=== PATIENT | female | born 1955 | race Caucasian/White ===

== ENCOUNTER 2017-05-19 23:01 | Inpatient (IN) | payer OTHER ==
[~2017-05-19] VITALS: Ht 157.5 cm; Wt 72.0 kg
[2017-05-20 01:10] LABS: Basophils # (auto) 0.1 uL; Basophils % (auto) 0.4 % (0.0-2.0); Eosinophils # (auto) 0 uL; Hematocrit 43.4 % (36.0-46.0); Lymphocytes # (auto) 0.9 uL; Lymphocytes % (auto) 5.3 % (10.0-50.0); Mean Corpuscular Hemoglobin 31.4 pg (28.0-32.0); Mean Corpuscular Hgb Conc. 34.4 g/dL (32.0-36.0); Mean Corpuscular Volume 91.1 fL (80.0-100.0); Monocytes # (auto) 0.5 uL; Monocytes % (auto) 2.8 % (0.0-12.0); Neutrophils % (auto) 91.5 % (37.0-80.0); Platelet Count (auto) 331 10^3/uL (140-450); Red Blood Cells 4.77 10^6/uL (4.0-5.20); Red Cell Distribution Width 14.9 % (11.8-14.3); White Blood Cell 17.5 10^3/uL (4.4-10.8)
[2017-05-20] MEDS ORDERED: ONDANSETRON HCL 4 MG/2 ML VIAL IV ONE (03:15)
[2017-05-20] MEDS ORDERED: FAMOTIDINE (10MG/ML) 2ML VL IV ONE (03:15)
[2017-05-20 03:32] LABS: Alkaline Phosphatase 91 U/L (45-117); Anion Gap 17 (5-15); Aspartate Aminotransferase 22 U/L (15-37); BUN/Creatinine Ratio 15.2; Blood Urea Nitrogen 14 mg/dL (7-18); Carbon Dioxide 18 mmol/L (21-32); Chloride 105 mmol/L (98-107); GFR African American 79 mL/min; GFR Non-African American 66 mL/min; Glucose 93 mg/dL (74-106); Potassium 3.8 mmol/L (3.5-5.1); Sodium 140 mmol/L (136-145)
[2017-05-20 03:33] LABS: Alanine Aminotransferase 23 U/L (13-56); Albumin 2.6 g/dL (3.4-5.0); Bilirubin, Total 0.8 mg/dL (0.2-1.0); Lipase 74 U/L (73-393); Total Protein 7.3 g/dL (6.4-8.2)
[2017-05-20] MEDS ORDERED: D5W/SOD CHL 0.45%/KCL 20MEQ 1,000 ML IV ONE (08:45)
[2017-05-20] MEDS: amLODIPine BESYLATE 5 MG TAB PO SCH (10:45)
[2017-05-20] MEDS: LEVOFLOXACIN 500MG 100 ML IV SCH (10:53)
[2017-05-20] MEDS: MESALAMINE 400mg Delayed Release Cap PO SCH ×2 (10:53→21:03)
[2017-05-20] MEDS: PANTOPRAZOLE 40 MG TAB PO SCH (10:53)
[2017-05-20] MEDS: metroNIDAZOLE 500MG/100ML 100 ML IV SCH ×2 (12:03→18:15)
[2017-05-20] MEDS: ONDANSETRON HCL 4 MG/2 ML VIAL IV PRN ×2 (12:04→18:27)
[2017-05-20] MEDS: MORPHINE SULFATE 4 MG/ML SYR/VIAL IV PRN (12:04)
[2017-05-20] MEDS: DICYCLOMINE HCL 10 MG CAP PO SCH ×3 (12:40→21:02)
[2017-05-20 13:19] VITALS: BP 113/64
[2017-05-20 13:45] VITALS: BP 113/63
[2017-05-20] MEDS: TIMOLOL MALEATE 0.25 % OPTH SOL 5ML EACHEYE SCH ×2 (14:31→21:01)
[2017-05-20] MEDS ORDERED: DICY20TA66 PO (14:37)
[2017-05-20] MEDS ORDERED: OME20T PO (14:37)
[2017-05-20] MEDS ORDERED: [UNRECOGNIZED DRUG - CODE] PO (14:37)
[2017-05-20 16:57] LABS: Urine Bacteria NONE SEEN /hpf (None Seen); Urine Blood Negative /uL (Negative); Urine Specific Gravity 1.009 (1.001-1.035); Urine WBC 36 /hpf (0 - 5)
[2017-05-20 17:00] VITALS: BP 141/68
[2017-05-20] MEDS ORDERED: ACET650S12 PO (19:10)
[2017-05-20] MEDS ORDERED: TIMO0.2521 EACHEYE (19:10)
[2017-05-20] MEDS ORDERED: AMLO5TAB2 PO (19:10)
[2017-05-20] MEDS ORDERED: DIPH2.5T73 PO (19:10)
[2017-05-20] MEDS ORDERED: METO5TAB2 PO (19:10)
[2017-05-20] MEDS: diphenhdrAMINE HCL 50 MG/1 ML VL IV PRN (21:02)
[2017-05-20] MEDS: ACYCLOVIR 400 MG TAB PO SCH (21:03)
[2017-05-20 22:00] VITALS: BP 114/78
[2017-05-20] MEDS ORDERED: MESALAMINE 400mg Delayed Release Cap PO SCH (22:00)
[2017-05-20] MEDS ORDERED: PANTOPRAZOLE 40 MG TAB PO SCH (22:00)
[2017-05-21] MEDS: MORPHINE SULFATE 4 MG/ML SYR/VIAL IV PRN ×2 (00:10→11:40)
[2017-05-21] MEDS: metroNIDAZOLE 500MG/100ML 100 ML IV SCH ×3 (02:17→18:34)
[2017-05-21 05:09] VITALS: BP 129/70
[2017-05-21] MEDS: ACYCLOVIR 400 MG TAB PO SCH ×2 (06:11→08:52)
[2017-05-21] MEDS: TIMOLOL MALEATE 0.25 % OPTH SOL 5ML EACHEYE SCH ×3 (06:12→22:19)
[2017-05-21] MEDS: DICYCLOMINE HCL 10 MG CAP PO SCH ×4 (06:12→21:44)
[2017-05-21 06:24] LABS: Basophils # (auto) 0 uL; Basophils % (auto) 0.4 % (0.0-2.0); Eosinophils # (auto) 0.1 uL; Eosinophils % (auto) 1.5 % (0.0-7.0); Hematocrit 39.2 % (36.0-46.0); Hemoglobin 13.4 g/dL (12.2-16.2); Lymphocytes # (auto) 2.6 uL; Lymphocytes % (auto) 38.9 % (10.0-50.0); Mean Corpuscular Hemoglobin 32.1 pg (28.0-32.0); Mean Corpuscular Hgb Conc. 34.1 g/dL (32.0-36.0); Mean Corpuscular Volume 94.2 fL (80.0-100.0); Monocytes # (auto) 0.5 uL; Monocytes % (auto) 7.7 % (0.0-12.0); Neutrophils # (auto) 3.4 uL; Neutrophils % (auto) 51.5 % (37.0-80.0); Platelet Count (auto) 222 10^3/uL (140-450); Red Blood Cells 4.16 10^6/uL (4.0-5.20); Red Cell Distribution Width 14.4 % (11.8-14.3); White Blood Cell 6.6 10^3/uL (4.4-10.8)
[2017-05-21 06:45] LABS: BUN/Creatinine Ratio 15.4; Bilirubin, Total 0.6 mg/dL (0.2-1.0); Calcium 8.1 mg/dL (8.5-10.1); Potassium 3.4 mmol/L (3.5-5.1); Total Protein 6.5 g/dL (6.4-8.2)
[2017-05-21] MEDS: ONDANSETRON HCL 4 MG/2 ML VIAL IV PRN ×2 (07:53→15:02)
[2017-05-21] MEDS: LEVOFLOXACIN 500MG 100 ML IV SCH (08:50)
[2017-05-21] MEDS: MESALAMINE 400mg Delayed Release Cap PO SCH ×2 (08:51→21:44)
[2017-05-21] MEDS: amLODIPine BESYLATE 5 MG TAB PO SCH (08:51)
[2017-05-21] MEDS: PANTOPRAZOLE 40 MG TAB PO SCH (08:51)
[2017-05-21 09:00] VITALS: BP 122/64
[2017-05-21 13:00] VITALS: BP 125/70
[2017-05-21] MEDS ORDERED: POTASSIUM CHL 10% (20 MEQ/15ML) 15ml ORAL SOLN PO ONE (14:15)
[2017-05-21] MEDS ORDERED: methylPREDNISolone SOD SUCC 125 MG/2 ML VL IV ONE (14:30)
[2017-05-21] MEDS: diphenhdrAMINE HCL 50 MG/1 ML VL IV PRN ×2 (15:02→19:35)
[2017-05-21 17:00] VITALS: BP 136/66
[2017-05-21] MEDS: methylPREDNISolone SOD SUCC 125 MG/2 ML VL IV SCH (21:44)
[2017-05-21 22:00] VITALS: BP 130/64
[2017-05-22] MEDS: metroNIDAZOLE 500MG/100ML 100 ML IV SCH ×3 (02:33→17:21)
[2017-05-22] MEDS: MORPHINE SULFATE 4 MG/ML SYR/VIAL IV PRN ×3 (04:34→17:22)
[2017-05-22] MEDS: ONDANSETRON HCL 4 MG/2 ML VIAL IV PRN ×3 (04:35→17:22)
[2017-05-22 05:00] VITALS: BP 135/74
[2017-05-22] MEDS: TIMOLOL MALEATE 0.25 % OPTH SOL 5ML EACHEYE SCH ×3 (05:59→21:42)
[2017-05-22] MEDS: DICYCLOMINE HCL 10 MG CAP PO SCH ×4 (05:59→21:43)
[2017-05-22 06:43] LABS: Potassium 3.9 mmol/L (3.5-5.1)
[2017-05-22 06:46] LABS: BUN/Creatinine Ratio 17.6
[2017-05-22] MEDS: methylPREDNISolone SOD SUCC 125 MG/2 ML VL IV SCH ×2 (08:39→21:42)
[2017-05-22] MEDS: PANTOPRAZOLE 40 MG TAB PO SCH (08:40)
[2017-05-22] MEDS: amLODIPine BESYLATE 5 MG TAB PO SCH (08:40)
[2017-05-22] MEDS: MESALAMINE 400mg Delayed Release Cap PO SCH ×2 (08:40→21:43)
[2017-05-22] MEDS: diphenhdrAMINE HCL 50 MG/1 ML VL IV PRN ×4 (08:40→21:43)
[2017-05-22 08:45] VITALS: BP 144/78
[2017-05-22] MEDS: LEVOFLOXACIN 500MG 100 ML IV SCH (09:49)
[2017-05-22 12:15] VITALS: BP 132/66
[2017-05-22 17:13] VITALS: BP 113/65
[2017-05-22 22:49] VITALS: BP 118/69
[2017-05-23] MEDS: metroNIDAZOLE 500MG/100ML 100 ML IV SCH ×3 (02:59→17:39)
[2017-05-23 05:01] VITALS: BP 130/73
[2017-05-23] MEDS: TIMOLOL MALEATE 0.25 % OPTH SOL 5ML EACHEYE SCH ×3 (06:03→22:13)
[2017-05-23] MEDS: DICYCLOMINE HCL 10 MG CAP PO SCH ×4 (06:03→22:13)
[2017-05-23] MEDS: ONDANSETRON HCL 4 MG/2 ML VIAL IV PRN ×4 (06:04→22:13)
[2017-05-23] MEDS: MORPHINE SULFATE 4 MG/ML SYR/VIAL IV PRN (06:04)
[2017-05-23] MEDS: diphenhdrAMINE HCL 50 MG/1 ML VL IV PRN ×2 (06:04→14:27)
[2017-05-23 08:41] VITALS: BP 111/63
[2017-05-23] MEDS: MESALAMINE 400mg Delayed Release Cap PO SCH ×2 (10:07→22:12)
[2017-05-23] MEDS: PANTOPRAZOLE 40 MG TAB PO SCH (10:07)
[2017-05-23] MEDS: methylPREDNISolone SOD SUCC 125 MG/2 ML VL IV SCH ×2 (10:07→22:13)
[2017-05-23] MEDS: LEVOFLOXACIN 500MG 100 ML IV SCH (10:07)
[2017-05-23] MEDS: amLODIPine BESYLATE 5 MG TAB PO SCH (10:10)
[2017-05-23 12:26] VITALS: BP 105/67
[2017-05-23 16:27] VITALS: BP 116/66
[2017-05-23 22:00] VITALS: BP 117/53
[2017-05-24] MEDS: metroNIDAZOLE 500MG/100ML 100 ML IV SCH ×3 (02:48→18:55)
[2017-05-24 05:00] VITALS: BP 120/67
[2017-05-24] MEDS: TIMOLOL MALEATE 0.25 % OPTH SOL 5ML EACHEYE SCH ×3 (06:17→22:00)
[2017-05-24] MEDS: DICYCLOMINE HCL 10 MG CAP PO SCH ×4 (06:17→22:00)
[2017-05-24] MEDS: ONDANSETRON HCL 4 MG/2 ML VIAL IV PRN ×3 (06:55→20:42)
[2017-05-24 08:27] VITALS: BP 128/74
[2017-05-24] MEDS: methylPREDNISolone SOD SUCC 125 MG/2 ML VL IV SCH ×2 (08:53→23:03)
[2017-05-24] MEDS: MESALAMINE 400mg Delayed Release Cap PO SCH ×2 (08:53→23:02)
[2017-05-24] MEDS: LEVOFLOXACIN 500MG 100 ML IV SCH (08:53)
[2017-05-24] MEDS: amLODIPine BESYLATE 5 MG TAB PO SCH (08:54)
[2017-05-24] MEDS: PANTOPRAZOLE 40 MG TAB PO SCH (08:54)
[2017-05-24 12:19] VITALS: BP 140/69
[2017-05-24 17:16] VITALS: BP 148/78
[2017-05-24] MEDS: MORPHINE SULFATE 4 MG/ML SYR/VIAL IV PRN (17:31)
[2017-05-24 22:22] VITALS: BP 129/71
[2017-05-25] MEDS: metroNIDAZOLE 500MG/100ML 100 ML IV SCH ×3 (03:01→18:36)
[2017-05-25 04:59] VITALS: BP 125/64
[2017-05-25] MEDS: TIMOLOL MALEATE 0.25 % OPTH SOL 5ML EACHEYE SCH ×3 (06:00→22:16)
[2017-05-25] MEDS: MESALAMINE 400mg Delayed Release Cap PO SCH ×3 (06:19→22:19)
[2017-05-25] MEDS: DICYCLOMINE HCL 10 MG CAP PO SCH ×4 (06:19→22:00)
[2017-05-25] MEDS: ONDANSETRON HCL 4 MG/2 ML VIAL IV PRN ×3 (06:26→22:16)
[2017-05-25 07:42] LABS: BUN/Creatinine Ratio 22.8; Calcium 8.7 mg/dL (8.5-10.1); Potassium 3.6 mmol/L (3.5-5.1)
[2017-05-25 09:23] VITALS: BP 148/75
[2017-05-25] MEDS: LEVOFLOXACIN 500MG 100 ML IV SCH (09:47)
[2017-05-25] MEDS: PANTOPRAZOLE 40 MG TAB PO SCH (09:48)
[2017-05-25] MEDS: methylPREDNISolone SOD SUCC 125 MG/2 ML VL IV SCH ×2 (09:48→22:18)
[2017-05-25] MEDS: amLODIPine BESYLATE 5 MG TAB PO SCH (09:50)
[2017-05-25] MEDS: MORPHINE SULFATE 4 MG/ML SYR/VIAL IV PRN ×4 (09:51→22:52)
[2017-05-25 12:49] VITALS: BP 136/70
[2017-05-25 17:21] VITALS: BP 130/87
[2017-05-25 22:00] VITALS: BP 137/99
[2017-05-25] MEDS: HYDROCORTISONE ACET 25 MG RECTAL SUPP PR SCH (22:18)
[2017-05-26] VITALS (7 sets, daily range): BP systolic 116–140; BP diastolic 56–83
[2017-05-26] MEDS: metroNIDAZOLE 500MG/100ML 100 ML IV SCH ×3 (02:51→18:10)
[2017-05-26] MEDS: DICYCLOMINE HCL 10 MG CAP PO SCH ×4 (06:00→22:37)
[2017-05-26] MEDS: ONDANSETRON HCL 4 MG/2 ML VIAL IV PRN ×3 (06:51→15:29)
[2017-05-26] MEDS: MORPHINE SULFATE 4 MG/ML SYR/VIAL IV PRN ×3 (06:52→15:29)
[2017-05-26] MEDS: MESALAMINE 400mg Delayed Release Cap PO SCH ×3 (06:53→22:37)
[2017-05-26] MEDS: TIMOLOL MALEATE 0.25 % OPTH SOL 5ML EACHEYE SCH ×3 (06:53→22:00)
[2017-05-26] MEDS: LEVOFLOXACIN 500MG 100 ML IV SCH (10:23)
[2017-05-26] MEDS: methylPREDNISolone SOD SUCC 125 MG/2 ML VL IV SCH ×2 (10:24→22:36)
[2017-05-26] MEDS: PANTOPRAZOLE 40 MG TAB PO SCH (10:24)
[2017-05-26] MEDS: amLODIPine BESYLATE 5 MG TAB PO SCH (10:26)
[2017-05-26] MEDS: HYDROCORTISONE ACET 25 MG RECTAL SUPP PR SCH ×2 (10:26→22:00)
[2017-05-26] MEDS: diphenhdrAMINE HCL 50 MG/1 ML VL IV PRN (18:19)
[2017-05-26] MEDS: ASCORBIC ACID 500 MG TAB PO SCH (22:00)
[2017-05-27] MEDS: metroNIDAZOLE 500MG/100ML 100 ML IV SCH ×3 (03:28→17:37)
[2017-05-27 05:05] VITALS: BP 132/76
[2017-05-27] MEDS: ONDANSETRON HCL 4 MG/2 ML VIAL IV PRN ×4 (06:00→20:26)
[2017-05-27] MEDS: TIMOLOL MALEATE 0.25 % OPTH SOL 5ML EACHEYE SCH ×3 (06:00→21:23)
[2017-05-27] MEDS: DICYCLOMINE HCL 10 MG CAP PO SCH ×4 (06:00→21:25)
[2017-05-27] MEDS: MESALAMINE 400mg Delayed Release Cap PO SCH ×3 (06:01→21:25)
[2017-05-27 06:20] LABS: Basophils # (auto) 0 uL; Basophils % (auto) 0.1 % (0.0-2.0); Eosinophils # (auto) 0 uL; Hematocrit 46.3 % (36.0-46.0); Hemoglobin 15.6 g/dL (12.2-16.2); Lymphocytes % (auto) 8.9 % (10.0-50.0); Mean Corpuscular Hemoglobin 31.6 pg (28.0-32.0); Mean Corpuscular Hgb Conc. 33.8 g/dL (32.0-36.0); Mean Corpuscular Volume 93.5 fL (80.0-100.0); Monocytes # (auto) 0.4 uL; Monocytes % (auto) 3.3 % (0.0-12.0); Neutrophils # (auto) 10.2 uL; Neutrophils % (auto) 87.7 % (37.0-80.0); Nucleated Red Blood Cells % 0.1 %; Platelet Count (auto) 293 10^3/uL (140-450); Red Blood Cells 4.96 10^6/uL (4.0-5.20); Red Cell Distribution Width 14.2 % (11.8-14.3); White Blood Cell 11.7 10^3/uL (4.4-10.8)
[2017-05-27 06:38] LABS: Albumin 2.6 g/dL (3.4-5.0); Bilirubin, Total 0.4 mg/dL (0.2-1.0); Calcium 7.8 mg/dL (8.5-10.1); Potassium 3.5 mmol/L (3.5-5.1)
[2017-05-27] MEDS: MORPHINE SULFATE 4 MG/ML SYR/VIAL IV PRN ×3 (06:49→20:27)
[2017-05-27 09:16] VITALS: BP 139/73
[2017-05-27] MEDS: HYDROCORTISONE ACET 25 MG RECTAL SUPP PR SCH ×2 (09:22→21:26)
[2017-05-27] MEDS: MULTIPLE VITAMIN TAB PO SCH (09:23)
[2017-05-27] MEDS: methylPREDNISolone SOD SUCC 125 MG/2 ML VL IV SCH (09:23)
[2017-05-27] MEDS: PANTOPRAZOLE 40 MG TAB PO SCH (09:23)
[2017-05-27] MEDS: ASCORBIC ACID 500 MG TAB PO SCH ×2 (09:23→21:26)
[2017-05-27] MEDS: amLODIPine BESYLATE 5 MG TAB PO SCH (09:24)
[2017-05-27] MEDS: LEVOFLOXACIN 500MG 100 ML IV SCH (09:25)
[2017-05-27 17:25] VITALS: BP 131/93
[2017-05-27] MEDS: VANCOMYCIN HCL 500MG/5ML ORAL SOL PO SCH ×2 (19:02→21:24)
[2017-05-27 20:00] VITALS: BP 140/63
[2017-05-27] MEDS: FLORASTOR (S. BOULARDII) 250 MG CAP PO SCH (21:26)
[2017-05-27 22:00] VITALS: BP 140/63
[2017-05-28] MEDS: metroNIDAZOLE 500MG/100ML 100 ML IV SCH ×3 (03:05→17:57)
[2017-05-28 05:00] VITALS: BP 123/59
[2017-05-28] MEDS: TIMOLOL MALEATE 0.25 % OPTH SOL 5ML EACHEYE SCH ×3 (06:00→22:00)
[2017-05-28] MEDS: DICYCLOMINE HCL 10 MG CAP PO SCH ×4 (06:10→23:08)
[2017-05-28] MEDS: VANCOMYCIN HCL 500MG/5ML ORAL SOL PO SCH ×4 (06:10→23:14)
[2017-05-28] MEDS: MESALAMINE 400mg Delayed Release Cap PO SCH ×3 (06:10→23:09)
[2017-05-28] MEDS: ONDANSETRON HCL 4 MG/2 ML VIAL IV PRN ×3 (06:10→17:27)
[2017-05-28 09:00] VITALS: BP 116/69
[2017-05-28] MEDS: ASCORBIC ACID 500 MG TAB PO SCH ×2 (09:17→23:09)
[2017-05-28] MEDS: FLORASTOR (S. BOULARDII) 250 MG CAP PO SCH ×2 (09:17→23:08)
[2017-05-28] MEDS: PANTOPRAZOLE 40 MG TAB PO SCH (09:17)
[2017-05-28] MEDS: MULTIPLE VITAMIN TAB PO SCH (09:17)
[2017-05-28] MEDS: amLODIPine BESYLATE 5 MG TAB PO SCH (09:18)
[2017-05-28] MEDS: HYDROCORTISONE ACET 25 MG RECTAL SUPP PR SCH ×2 (09:19→22:00)
[2017-05-28] MEDS: MORPHINE SULFATE 4 MG/ML SYR/VIAL IV PRN ×2 (09:23→16:40)
[2017-05-28] MEDS ORDERED: methylPREDNISolone SOD SUCC 40 MG/ML VL IV SCH (10:00)
[2017-05-28 10:15] LABS: Basophils # (auto) 0 uL; Eosinophils # (auto) 0 uL; Eosinophils % (auto) 0.1 % (0.0-7.0); Hematocrit 47.7 % (36.0-46.0); Hemoglobin 16.1 g/dL (12.2-16.2); Lymphocytes # (auto) 1.6 uL; Lymphocytes % (auto) 12.6 % (10.0-50.0); Mean Corpuscular Hemoglobin 31.4 pg (28.0-32.0); Mean Corpuscular Hgb Conc. 33.6 g/dL (32.0-36.0); Mean Corpuscular Volume 93.3 fL (80.0-100.0); Monocytes # (auto) 1.3 uL; Monocytes % (auto) 10.7 % (0.0-12.0); Neutrophils # (auto) 9.5 uL; Neutrophils % (auto) 76.6 % (37.0-80.0); Platelet Count (auto) 294 10^3/uL (140-450); Red Blood Cells 5.12 10^6/uL (4.0-5.20); Red Cell Distribution Width 14.2 % (11.8-14.3); White Blood Cell 12.5 10^3/uL (4.4-10.8)
[2017-05-28 10:35] LABS: Albumin 2.7 g/dL (3.4-5.0); BUN/Creatinine Ratio 31.8; Bilirubin, Total 0.4 mg/dL (0.2-1.0); Calcium 7.8 mg/dL (8.5-10.1); Potassium 3.5 mmol/L (3.5-5.1); Total Protein 6.1 g/dL (6.4-8.2)
[2017-05-28 12:00] VITALS: BP 123/62
[2017-05-28] MEDS: CHOLESTYRAMINE 4 GM POWDER PO SCH ×2 (13:53→23:09)
[2017-05-28 16:00] VITALS: BP 106/65
[2017-05-28] MEDS: diphenhdrAMINE HCL 50 MG/1 ML VL IV PRN (19:50)
[2017-05-28 22:00] VITALS: BP 115/76
[2017-05-29] VITALS (7 sets, daily range): BP systolic 100–133; BP diastolic 60–69
[2017-05-29] MEDS: MORPHINE SULFATE 4 MG/ML SYR/VIAL IV PRN ×2 (00:14→06:17)
[2017-05-29] MEDS: metroNIDAZOLE 500MG/100ML 100 ML IV SCH (04:17)
[2017-05-29] MEDS: TIMOLOL MALEATE 0.25 % OPTH SOL 5ML EACHEYE SCH ×3 (06:00→22:00)
[2017-05-29] MEDS: CHOLESTYRAMINE 4 GM POWDER PO SCH ×3 (06:16→22:00)
[2017-05-29] MEDS: MESALAMINE 400mg Delayed Release Cap PO SCH ×3 (06:16→22:14)
[2017-05-29] MEDS: DICYCLOMINE HCL 10 MG CAP PO SCH ×4 (06:17→22:15)
[2017-05-29] MEDS: VANCOMYCIN HCL 500MG/5ML ORAL SOL PO SCH ×4 (06:17→22:15)
[2017-05-29] MEDS: ONDANSETRON HCL 4 MG/2 ML VIAL IV PRN ×2 (06:18→15:29)
[2017-05-29] MEDS ORDERED: metroNIDAZOLE 500MG/100ML 100 ML IV SCH ×2 (08:00→14:00)
[2017-05-29] MEDS: FLORASTOR (S. BOULARDII) 250 MG CAP PO SCH ×2 (09:17→22:15)
[2017-05-29] MEDS: MULTIPLE VITAMIN TAB PO SCH (09:17)
[2017-05-29] MEDS: PANTOPRAZOLE 40 MG TAB PO SCH (09:18)
[2017-05-29] MEDS: amLODIPine BESYLATE 5 MG TAB PO SCH (09:18)
[2017-05-29] MEDS: ASCORBIC ACID 500 MG TAB PO SCH ×2 (09:18→22:15)
[2017-05-29] MEDS: HYDROCORTISONE ACET 25 MG RECTAL SUPP PR SCH ×2 (10:00→22:00)
[2017-05-29] MEDS: HYDROcodone-ACET 10/325MG TAB PO PRN ×2 (15:30→19:58)
[2017-05-30 05:00] VITALS: BP 107/59
[2017-05-30] MEDS: TIMOLOL MALEATE 0.25 % OPTH SOL 5ML EACHEYE SCH ×3 (06:00→21:45)
[2017-05-30] MEDS: CHOLESTYRAMINE 4 GM POWDER PO SCH ×3 (06:00→21:45)
[2017-05-30] MEDS: ONDANSETRON HCL 4 MG/2 ML VIAL IV PRN ×2 (06:48→13:31)
[2017-05-30] MEDS: DICYCLOMINE HCL 10 MG CAP PO SCH ×4 (06:49→21:51)
[2017-05-30] MEDS: VANCOMYCIN HCL 500MG/5ML ORAL SOL PO SCH ×4 (06:50→21:53)
[2017-05-30] MEDS: MESALAMINE 400mg Delayed Release Cap PO SCH ×3 (06:50→21:50)
[2017-05-30] MEDS: ASCORBIC ACID 500 MG TAB PO SCH ×2 (08:41→21:53)
[2017-05-30] MEDS: MULTIPLE VITAMIN TAB PO SCH (08:41)
[2017-05-30] MEDS: FLORASTOR (S. BOULARDII) 250 MG CAP PO SCH ×2 (08:41→21:52)
[2017-05-30] MEDS: PANTOPRAZOLE 40 MG TAB PO SCH (08:41)
[2017-05-30] MEDS: HYDROCORTISONE ACET 25 MG RECTAL SUPP PR SCH ×2 (08:42→21:45)
[2017-05-30] MEDS: amLODIPine BESYLATE 5 MG TAB PO SCH (08:42)
[2017-05-30 09:00] VITALS: BP 114/63
[2017-05-30 13:00] VITALS: BP 116/64
[2017-05-30] MEDS: HYDROcodone-ACET 10/325MG TAB PO PRN ×2 (13:32→18:49)
[2017-05-30 17:00] VITALS: BP 108/62
[2017-05-30 20:00] VITALS: BP 105/55
[2017-05-30] MEDS: diphenhdrAMINE HCL 50 MG/1 ML VL IV PRN (20:03)
[2017-05-30 22:00] VITALS: BP 105/55
[2017-05-31] MEDS: HYDROcodone-ACET 10/325MG TAB PO PRN ×4 (04:14→22:32)
[2017-05-31] MEDS: TIMOLOL MALEATE 0.25 % OPTH SOL 5ML EACHEYE SCH ×3 (05:24→22:00)
[2017-05-31] MEDS: CHOLESTYRAMINE 4 GM POWDER PO SCH ×3 (05:25→22:31)
[2017-05-31 05:39] VITALS: BP 115/68
[2017-05-31] MEDS: MESALAMINE 400mg Delayed Release Cap PO SCH ×3 (06:29→22:30)
[2017-05-31] MEDS: DICYCLOMINE HCL 10 MG CAP PO SCH ×4 (06:30→22:33)
[2017-05-31] MEDS: VANCOMYCIN HCL 500MG/5ML ORAL SOL PO SCH ×4 (06:31→22:33)
[2017-05-31 08:00] VITALS: BP 114/63
[2017-05-31 09:00] VITALS: BP 100/56
[2017-05-31] MEDS: HYDROCORTISONE ACET 25 MG RECTAL SUPP PR SCH ×2 (10:00→22:00)
[2017-05-31] MEDS: amLODIPine BESYLATE 5 MG TAB PO SCH (10:00)
[2017-05-31] MEDS: FLORASTOR (S. BOULARDII) 250 MG CAP PO SCH ×2 (10:19→22:31)
[2017-05-31] MEDS: PANTOPRAZOLE 40 MG TAB PO SCH (10:21)
[2017-05-31] MEDS: MULTIPLE VITAMIN TAB PO SCH (10:21)
[2017-05-31] MEDS: ASCORBIC ACID 500 MG TAB PO SCH ×2 (10:22→22:31)
[2017-05-31] MEDS: ONDANSETRON HCL 4 MG/2 ML VIAL IV PRN ×2 (12:07→17:51)
[2017-05-31 13:00] VITALS: BP 128/78
[2017-05-31] MEDS: DIPHENOXYLATE W/ATROPINE 2.5 MG TAB PO PRN ×2 (14:57→22:31)
[2017-05-31 16:47] VITALS: BP 115/65
[2017-05-31] MEDS: diphenhdrAMINE HCL 50 MG/1 ML VL IV PRN (20:42)
[2017-05-31 21:35] VITALS: BP 112/53
[2017-06-01 05:21] VITALS: BP 112/61
[2017-06-01] MEDS: CHOLESTYRAMINE 4 GM POWDER PO SCH ×3 (05:54→23:35)
[2017-06-01] MEDS: HYDROcodone-ACET 10/325MG TAB PO PRN ×2 (05:54→23:45)
[2017-06-01] MEDS: TIMOLOL MALEATE 0.25 % OPTH SOL 5ML EACHEYE SCH ×3 (05:55→23:33)
[2017-06-01] MEDS: DICYCLOMINE HCL 10 MG CAP PO SCH ×4 (05:55→23:34)
[2017-06-01] MEDS: MESALAMINE 400mg Delayed Release Cap PO SCH ×3 (05:55→23:34)
[2017-06-01] MEDS: VANCOMYCIN HCL 500MG/5ML ORAL SOL PO SCH ×4 (05:55→23:34)
[2017-06-01] MEDS: DIPHENOXYLATE W/ATROPINE 2.5 MG TAB PO PRN ×2 (06:02→23:43)
[2017-06-01] MEDS: ONDANSETRON HCL 4 MG/2 ML VIAL IV PRN ×3 (06:02→23:43)
[2017-06-01 06:55] LABS: BUN/Creatinine Ratio 15.7; Calcium 8.1 mg/dL (8.5-10.1); Potassium 3.5 mmol/L (3.5-5.1)
[2017-06-01 08:00] VITALS: BP 100/49
[2017-06-01] MEDS: FLORASTOR (S. BOULARDII) 250 MG CAP PO SCH ×2 (08:45→23:34)
[2017-06-01] MEDS: PANTOPRAZOLE 40 MG TAB PO SCH (08:45)
[2017-06-01] MEDS: amLODIPine BESYLATE 5 MG TAB PO SCH (08:45)
[2017-06-01] MEDS: ASCORBIC ACID 500 MG TAB PO SCH ×2 (08:45→23:35)
[2017-06-01] MEDS: MULTIPLE VITAMIN TAB PO SCH (08:45)
[2017-06-01] MEDS: HYDROCORTISONE ACET 25 MG RECTAL SUPP PR SCH ×3 (08:46→23:35)
[2017-06-01 12:00] VITALS: BP 93/59
[2017-06-01 16:46] VITALS: BP 119/72
[2017-06-01 21:35] VITALS: BP 105/56
[2017-06-01] MEDS: diphenhdrAMINE HCL 50 MG/1 ML VL IV PRN (23:44)
[2017-06-02] VITALS (7 sets, daily range): BP systolic 103–129; BP diastolic 52–63
[2017-06-02] MEDS: TIMOLOL MALEATE 0.25 % OPTH SOL 5ML EACHEYE SCH ×3 (06:32→22:47)
[2017-06-02] MEDS: VANCOMYCIN HCL 500MG/5ML ORAL SOL PO SCH ×4 (06:32→22:00)
[2017-06-02] MEDS: DICYCLOMINE HCL 10 MG CAP PO SCH ×4 (06:32→22:49)
[2017-06-02] MEDS: MESALAMINE 400mg Delayed Release Cap PO SCH ×3 (06:32→22:46)
[2017-06-02] MEDS: CHOLESTYRAMINE 4 GM POWDER PO SCH ×3 (06:33→22:45)
[2017-06-02] MEDS: HYDROcodone-ACET 10/325MG TAB PO PRN ×4 (06:38→22:46)
[2017-06-02] MEDS: ONDANSETRON HCL 4 MG/2 ML VIAL IV PRN ×2 (06:39→23:30)
[2017-06-02] MEDS: DIPHENOXYLATE W/ATROPINE 2.5 MG TAB PO PRN ×2 (06:46→15:44)
[2017-06-02 07:29] LABS: BUN/Creatinine Ratio 21.8; Calcium 7.8 mg/dL (8.5-10.1); Potassium 3.4 mmol/L (3.5-5.1)
[2017-06-02] MEDS: MULTIPLE VITAMIN TAB PO SCH (09:52)
[2017-06-02] MEDS: PANTOPRAZOLE 40 MG TAB PO SCH (09:52)
[2017-06-02] MEDS: FLORASTOR (S. BOULARDII) 250 MG CAP PO SCH ×2 (09:52→22:45)
[2017-06-02] MEDS: amLODIPine BESYLATE 5 MG TAB PO SCH (09:53)
[2017-06-02] MEDS: HYDROCORTISONE ACET 25 MG RECTAL SUPP PR SCH ×2 (09:53→22:45)
[2017-06-02] MEDS: ASCORBIC ACID 500 MG TAB PO SCH ×2 (09:53→22:46)
[2017-06-02] MEDS: diphenhdrAMINE HCL 50 MG/1 ML VL IV PRN ×3 (10:02→23:31)
[2017-06-02] MEDS ORDERED: POTASSIUM CHL 20 Meq TABLET PO ONE (14:45)
[2017-06-03] VITALS (7 sets, daily range): BP systolic 105–145; BP diastolic 57–91
[2017-06-03] MEDS: DICYCLOMINE HCL 10 MG CAP PO SCH ×4 (05:42→22:12)
[2017-06-03] MEDS: MESALAMINE 400mg Delayed Release Cap PO SCH ×3 (05:42→22:11)
[2017-06-03] MEDS: CHOLESTYRAMINE 4 GM POWDER PO SCH ×3 (05:43→22:11)
[2017-06-03] MEDS: VANCOMYCIN HCL 500MG/5ML ORAL SOL PO SCH ×4 (05:43→22:11)
[2017-06-03] MEDS: TIMOLOL MALEATE 0.25 % OPTH SOL 5ML EACHEYE SCH ×3 (05:43→22:11)
[2017-06-03] MEDS: HYDROcodone-ACET 10/325MG TAB PO PRN ×4 (06:03→22:12)
[2017-06-03] MEDS: diphenhdrAMINE HCL 50 MG/1 ML VL IV PRN ×3 (06:03→22:13)
[2017-06-03] MEDS: ONDANSETRON HCL 4 MG/2 ML VIAL IV PRN ×2 (06:06→22:13)
[2017-06-03] MEDS: DIPHENOXYLATE W/ATROPINE 2.5 MG TAB PO PRN ×4 (06:25→23:10)
[2017-06-03 06:44] LABS: BUN/Creatinine Ratio 17.4; Calcium 8.3 mg/dL (8.5-10.1); Potassium 4.7 mmol/L (3.5-5.1)
[2017-06-03] MEDS: FLORASTOR (S. BOULARDII) 250 MG CAP PO SCH ×2 (09:21→22:12)
[2017-06-03] MEDS: PANTOPRAZOLE 40 MG TAB PO SCH (09:22)
[2017-06-03] MEDS: amLODIPine BESYLATE 5 MG TAB PO SCH (09:22)
[2017-06-03] MEDS: MULTIPLE VITAMIN TAB PO SCH (09:22)
[2017-06-03] MEDS: HYDROCORTISONE ACET 25 MG RECTAL SUPP PR SCH ×2 (10:00→22:12)
[2017-06-03] MEDS: ASCORBIC ACID 500 MG TAB PO SCH ×2 (10:00→22:12)
[2017-06-04] MEDS: HYDROcodone-ACET 10/325MG TAB PO PRN ×4 (04:01→22:21)
[2017-06-04 04:57] VITALS: BP 141/73
[2017-06-04] MEDS: CHOLESTYRAMINE 4 GM POWDER PO SCH ×4 (05:34→22:18)
[2017-06-04] MEDS: VANCOMYCIN HCL 500MG/5ML ORAL SOL PO SCH (05:34)
[2017-06-04] MEDS: TIMOLOL MALEATE 0.25 % OPTH SOL 5ML EACHEYE SCH ×3 (05:34→22:17)
[2017-06-04] MEDS: DIPHENOXYLATE W/ATROPINE 2.5 MG TAB PO PRN ×4 (05:35→22:21)
[2017-06-04] MEDS: DICYCLOMINE HCL 10 MG CAP PO SCH ×4 (05:35→22:18)
[2017-06-04] MEDS: ONDANSETRON HCL 4 MG/2 ML VIAL IV PRN ×4 (05:35→22:18)
[2017-06-04] MEDS: diphenhdrAMINE HCL 50 MG/1 ML VL IV PRN (05:36)
[2017-06-04] MEDS: MESALAMINE 400mg Delayed Release Cap PO SCH ×3 (06:29→22:18)
[2017-06-04 07:30] VITALS: BP 118/57
[2017-06-04 08:57] VITALS: BP 116/63
[2017-06-04] MEDS: HYDROCORTISONE ACET 25 MG RECTAL SUPP PR SCH ×2 (10:00→22:18)
[2017-06-04] MEDS: ASCORBIC ACID 500 MG TAB PO SCH (10:28)
[2017-06-04] MEDS: FLORASTOR (S. BOULARDII) 250 MG CAP PO SCH ×2 (10:28→22:18)
[2017-06-04] MEDS: MULTIPLE VITAMIN TAB PO SCH (10:28)
[2017-06-04] MEDS: amLODIPine BESYLATE 5 MG TAB PO SCH (10:28)
[2017-06-04] MEDS: PANTOPRAZOLE 40 MG TAB PO SCH (10:29)
[2017-06-04] MEDS ORDERED: GASTROGRAFIN 30 ML SOL ONE ×2 (10:53→11:40)
[2017-06-04] MEDS ORDERED: IOHEXOL 300 MG/ML 100ML BOTTLE IJ ONE (10:53)
[2017-06-04] MEDS: D5W/SOD CHL 0.45%/KCL 20MEQ 1,000 ML IV SCH ×2 (12:45→18:45)
[2017-06-04 13:00] VITALS: BP 99/54
[2017-06-04] MEDS: metroNIDAZOLE 500 MG TAB PO SCH ×2 (16:10→22:18)
[2017-06-04 17:00] VITALS: BP 94/61
[2017-06-04 20:00] VITALS: BP 126/67
[2017-06-04] MEDS: methylPREDNISolone SOD SUCC 125 MG/2 ML VL IV SCH (22:17)
[2017-06-05] MEDS: D5W/SOD CHL 0.45%/KCL 20MEQ 1,000 ML IV SCH ×3 (03:49→21:10)
[2017-06-05 05:19] VITALS: BP 118/64
[2017-06-05] MEDS: TIMOLOL MALEATE 0.25 % OPTH SOL 5ML EACHEYE SCH ×3 (06:00→22:22)
[2017-06-05] MEDS: MESALAMINE 400mg Delayed Release Cap PO SCH ×3 (06:00→22:25)
[2017-06-05] MEDS: CHOLESTYRAMINE 4 GM POWDER PO SCH ×3 (06:00→22:26)
[2017-06-05] MEDS: DICYCLOMINE HCL 10 MG CAP PO SCH ×4 (06:00→22:23)
[2017-06-05] MEDS: metroNIDAZOLE 500 MG TAB PO SCH ×3 (06:00→22:25)
[2017-06-05 06:39] LABS: Basophils # (auto) 0 uL; Basophils % (auto) 0.1 % (0.0-2.0); Eosinophils # (auto) 0 uL; Hematocrit 41.9 % (36.0-46.0); Hemoglobin 14.2 g/dL (12.2-16.2); Lymphocytes # (auto) 0.4 uL; Mean Corpuscular Hemoglobin 32.6 pg (28.0-32.0); Monocytes # (auto) 0.1 uL; Monocytes % (auto) 0.9 % (0.0-12.0); Platelet Count (auto) 204 10^3/uL (140-450); Red Blood Cells 4.36 10^6/uL (4.0-5.20); Red Cell Distribution Width 14.1 % (11.8-14.3); White Blood Cell 8.5 10^3/uL (4.4-10.8)
[2017-06-05 06:58] LABS: Albumin 2.6 g/dL (3.4-5.0); Bilirubin, Total 0.4 mg/dL (0.2-1.0); Calcium 8.7 mg/dL (8.5-10.1); Total Protein 7.1 g/dL (6.4-8.2)
[2017-06-05] MEDS: ONDANSETRON HCL 4 MG/2 ML VIAL IV PRN ×3 (07:41→21:10)
[2017-06-05] MEDS ORDERED: diphenhdrAMINE HCL 50 MG/1 ML VL ONE (07:56)
[2017-06-05 09:00] VITALS: BP 122/58
[2017-06-05] MEDS: methylPREDNISolone SOD SUCC 125 MG/2 ML VL IV SCH ×2 (10:00→22:23)
[2017-06-05] MEDS: amLODIPine BESYLATE 5 MG TAB PO SCH (10:00)
[2017-06-05] MEDS: PANTOPRAZOLE 40 MG TAB PO SCH (10:00)
[2017-06-05] MEDS: FLORASTOR (S. BOULARDII) 250 MG CAP PO SCH ×2 (10:00→22:26)
[2017-06-05] MEDS: HYDROCORTISONE ACET 25 MG RECTAL SUPP PR SCH ×3 (10:00→22:27)
[2017-06-05 10:36] LABS: INR 0.99 (0.9-1.15); Partial Thromboplastin Time 26.4 sec (22.64-33.71); Prothrombin Time 10.8 sec (9.37-12.3)
[2017-06-05] MEDS: MIDAZOLAM HCL 5 MG/ML-1ML VIAL ONE ×2 (11:12→11:16)
[2017-06-05] MEDS: fentaNYL CITRATE 100 MCG/2 ML VL ONE ×2 (11:12→11:16)
[2017-06-05 13:00] VITALS: BP 110/60
[2017-06-05] MEDS ORDERED: methylPREDNISolone SOD SUCC 125 MG/2 ML VL IV SCH (13:00)
[2017-06-05] MEDS: HYDROcodone-ACET 10/325MG TAB PO PRN (16:53)
[2017-06-05 17:00] VITALS: BP 131/66
[2017-06-05 22:00] VITALS: BP 124/68
[2017-06-05] MEDS: DIPHENOXYLATE W/ATROPINE 2.5 MG TAB PO PRN (22:44)
[2017-06-05] MEDS: diphenhdrAMINE HCL 50 MG/1 ML VL IV PRN (23:59)
[2017-06-06] MEDS: D5W/SOD CHL 0.45%/KCL 20MEQ 1,000 ML IV SCH ×3 (04:25→21:50)
[2017-06-06 05:00] VITALS: BP 136/67
[2017-06-06] MEDS: metroNIDAZOLE 500 MG TAB PO SCH ×3 (06:36→21:51)
[2017-06-06] MEDS: DICYCLOMINE HCL 10 MG CAP PO SCH ×4 (06:36→21:51)
[2017-06-06] MEDS: MESALAMINE 400mg Delayed Release Cap PO SCH ×3 (06:36→21:51)
[2017-06-06] MEDS: TIMOLOL MALEATE 0.25 % OPTH SOL 5ML EACHEYE SCH ×3 (06:36→21:50)
[2017-06-06] MEDS: CHOLESTYRAMINE 4 GM POWDER PO SCH ×3 (06:37→21:52)
[2017-06-06] MEDS: ONDANSETRON HCL 4 MG/2 ML VIAL IV PRN ×2 (06:53→21:53)
[2017-06-06 08:00] VITALS: BP 114/63
[2017-06-06] MEDS: methylPREDNISolone SOD SUCC 125 MG/2 ML VL IV SCH ×2 (08:57→21:51)
[2017-06-06] MEDS: PANTOPRAZOLE 40 MG TAB PO SCH (08:58)
[2017-06-06] MEDS: diphenhdrAMINE HCL 50 MG/1 ML VL IV PRN ×2 (08:58→18:08)
[2017-06-06] MEDS: amLODIPine BESYLATE 5 MG TAB PO SCH (08:59)
[2017-06-06] MEDS: FLORASTOR (S. BOULARDII) 250 MG CAP PO SCH ×2 (08:59→21:51)
[2017-06-06 09:00] VITALS: BP 114/63
[2017-06-06] MEDS: HYDROCORTISONE ACET 25 MG RECTAL SUPP PR SCH ×2 (09:00→21:52)
[2017-06-06] MEDS: HYDROcodone-ACET 10/325MG TAB PO PRN ×3 (11:28→21:53)
[2017-06-06 13:00] VITALS: BP 122/72
[2017-06-06 17:00] VITALS: BP 125/66
[2017-06-06] MEDS: PRO-STAT 64 30ML PO SCH (18:00)
[2017-06-06] MEDS: Boost Breeze 8 Ounces PO SCH (18:12)
[2017-06-06 21:54] VITALS: BP 121/64
[2017-06-07] MEDS: DICYCLOMINE HCL 10 MG CAP PO SCH ×4 (05:33→22:42)
[2017-06-07] MEDS: D5W/SOD CHL 0.45%/KCL 20MEQ 1,000 ML IV SCH ×3 (05:33→22:43)
[2017-06-07] MEDS: TIMOLOL MALEATE 0.25 % OPTH SOL 5ML EACHEYE SCH ×2 (05:33→13:34)
[2017-06-07] MEDS: CHOLESTYRAMINE 4 GM POWDER PO SCH ×3 (05:34→22:43)
[2017-06-07] MEDS: metroNIDAZOLE 500 MG TAB PO SCH ×3 (05:34→22:42)
[2017-06-07] MEDS: MESALAMINE 400mg Delayed Release Cap PO SCH ×3 (05:34→22:42)
[2017-06-07] MEDS: ONDANSETRON HCL 4 MG/2 ML VIAL IV PRN ×4 (05:34→22:30)
[2017-06-07] MEDS: HYDROcodone-ACET 10/325MG TAB PO PRN ×3 (05:35→20:45)
[2017-06-07 05:42] VITALS: BP 138/72
[2017-06-07 08:00] VITALS: BP 136/64
[2017-06-07] MEDS: Boost Breeze 8 Ounces PO SCH ×3 (08:00→18:00)
[2017-06-07] MEDS: PRO-STAT 64 30ML PO SCH ×2 (08:00→18:00)
[2017-06-07] MEDS: methylPREDNISolone SOD SUCC 125 MG/2 ML VL IV SCH ×2 (08:43→22:42)
[2017-06-07] MEDS: LEVOFLOXACIN 500MG 100 ML IV SCH (08:43)
[2017-06-07] MEDS: FLORASTOR (S. BOULARDII) 250 MG CAP PO SCH ×2 (08:43→22:42)
[2017-06-07] MEDS: PANTOPRAZOLE 40 MG TAB PO SCH (08:43)
[2017-06-07 09:00] VITALS: BP 121/60
[2017-06-07] MEDS: HYDROCORTISONE ACET 25 MG RECTAL SUPP PR SCH ×2 (10:00→22:00)
[2017-06-07] MEDS: amLODIPine BESYLATE 5 MG TAB PO SCH (10:00)
[2017-06-07] MEDS ORDERED: GOLYTELY 4L KIT PO ONE (12:00)
[2017-06-07 12:28] VITALS: BP 126/78
[2017-06-07 17:00] VITALS: BP 131/65
[2017-06-07 21:58] VITALS: BP 137/71
[2017-06-08 00:59] LABS: Urine Bacteria NONE SEEN /hpf (None Seen); Urine Blood Negative /uL (Negative); Urine Mucus FEW (None Seen); Urine Specific Gravity 1.012 (1.001-1.035); Urine WBC 4 /hpf (0 - 5)
[2017-06-08 05:22] VITALS: BP 151/80
[2017-06-08] MEDS: MESALAMINE 400mg Delayed Release Cap PO SCH (05:53)
[2017-06-08] MEDS: metroNIDAZOLE 500 MG TAB PO SCH (05:53)
[2017-06-08] MEDS: DICYCLOMINE HCL 10 MG CAP PO SCH ×4 (05:53→20:44)
[2017-06-08] MEDS: HYDROcodone-ACET 10/325MG TAB PO PRN ×4 (05:54→20:31)
[2017-06-08] MEDS: D5W/SOD CHL 0.45%/KCL 20MEQ 1,000 ML IV SCH ×2 (05:54→14:45)
[2017-06-08] MEDS: ONDANSETRON HCL 4 MG/2 ML VIAL IV PRN ×4 (05:54→20:32)
[2017-06-08] MEDS: CHOLESTYRAMINE 4 GM POWDER PO SCH ×4 (05:54→22:24)
[2017-06-08 07:18] LABS: INR 1.03 (0.9-1.15); Partial Thromboplastin Time 22.9 sec (22.64-33.71); Prothrombin Time 11.2 sec (9.37-12.3)
[2017-06-08 07:21] LABS: Basophils # (auto) 0 uL; Basophils % (auto) 0.1 % (0.0-2.0); Eosinophils # (auto) 0 uL; Hematocrit 39.9 % (36.0-46.0); Hemoglobin 13.5 g/dL (12.2-16.2); Lymphocytes # (auto) 0.7 uL; Lymphocytes % (auto) 5.3 % (10.0-50.0); Mean Corpuscular Hemoglobin 32.5 pg (28.0-32.0); Mean Corpuscular Hgb Conc. 33.8 g/dL (32.0-36.0); Mean Corpuscular Volume 96.2 fL (80.0-100.0); Monocytes # (auto) 0.4 uL; Monocytes % (auto) 3.3 % (0.0-12.0); Neutrophils # (auto) 11.6 uL; Neutrophils % (auto) 91.3 % (37.0-80.0); Nucleated Red Blood Cells % 0.1 %; Platelet Count (auto) 194 10^3/uL (140-450); Red Blood Cells 4.15 10^6/uL (4.0-5.20); Red Cell Distribution Width 14.1 % (11.8-14.3); White Blood Cell 12.7 10^3/uL (4.4-10.8)
[2017-06-08 07:45] LABS: Albumin 2.5 g/dL (3.4-5.0); BUN/Creatinine Ratio 11.4; Bilirubin, Total 0.3 mg/dL (0.2-1.0); Calcium 8.5 mg/dL (8.5-10.1); Potassium 4.8 mmol/L (3.5-5.1); Total Protein 6.2 g/dL (6.4-8.2)
[2017-06-08 08:00] VITALS: BP 121/60
[2017-06-08] MEDS: Boost Breeze 8 Ounces PO SCH (08:00)
[2017-06-08] MEDS ORDERED: fentaNYL CITRATE 100 MCG/2 ML VL ONE (09:30)
[2017-06-08] MEDS ORDERED: PROPOFOL 10 MG/ML 20 ML IV ONE (09:30)
[2017-06-08] MEDS ORDERED: MIDAZOLAM HCL 1MG/1ML-2 ML VIAL ONE (09:30)
[2017-06-08 10:19] VITALS: BP 149/72
[2017-06-08] MEDS: PRO-STAT 64 30ML PO SCH ×2 (10:45→22:00)
[2017-06-08] MEDS ORDERED: metroNIDAZOLE 500 MG TAB PO SCH (11:00)
[2017-06-08] MEDS: LEVOFLOXACIN 500MG 100 ML IV SCH (11:11)
[2017-06-08] MEDS: FLORASTOR (S. BOULARDII) 250 MG CAP PO SCH (11:11)
[2017-06-08 13:00] VITALS: BP 131/66
[2017-06-08] MEDS ORDERED: DIPHENOXYLATE W/ATROPINE 2.5 MG TAB PO PRN (13:45)
[2017-06-08 16:20] VITALS: BP 107/83
[2017-06-08] MEDS: diphenhdrAMINE HCL 50 MG/1 ML VL IV PRN (20:42)
[2017-06-08 21:42] VITALS: BP 146/78
[2017-06-09] MEDS: D5W/SOD CHL 0.45%/KCL 20MEQ 1,000 ML IV SCH ×4 (02:24→23:42)
[2017-06-09 04:35] VITALS: BP 154/76
[2017-06-09] MEDS: DICYCLOMINE HCL 10 MG CAP PO SCH ×2 (05:12→09:44)
[2017-06-09] MEDS: CHOLESTYRAMINE 4 GM POWDER PO SCH ×4 (05:12→22:56)
[2017-06-09] MEDS: ONDANSETRON HCL 4 MG/2 ML VIAL IV PRN ×3 (07:08→19:45)
[2017-06-09 08:00] VITALS: BP 135/82
[2017-06-09 08:30] VITALS: BP 135/82
[2017-06-09] MEDS: PRO-STAT 64 30ML PO SCH ×2 (09:36→21:39)
[2017-06-09] MEDS: HYDROcodone-ACET 10/325MG TAB PO PRN ×2 (09:44→19:48)
[2017-06-09 12:31] VITALS: BP 132/94
[2017-06-09] MEDS ORDERED: DIPHENOXYLATE W/ATROPINE 2.5 MG TAB PO PRN (15:15)
[2017-06-09] MEDS ORDERED: HYOSCYAMINE SULF 0.125 MG TAB PO PRN (15:15)
[2017-06-09] MEDS: PANTOPRAZOLE 40 MG TAB PO SCH (16:23)
[2017-06-09 17:10] VITALS: BP 142/76
[2017-06-09] MEDS: HYOSCYAMINE SULF 0.125 MG TAB PO PRN (21:35)
[2017-06-09 22:00] VITALS: BP 112/57
[2017-06-10 05:00] VITALS: BP 126/74
[2017-06-10] MEDS: CHOLESTYRAMINE 4 GM POWDER PO SCH ×4 (05:32→23:00)
[2017-06-10] MEDS: D5W/SOD CHL 0.45%/KCL 20MEQ 1,000 ML IV SCH ×2 (08:38→16:57)
[2017-06-10 09:00] VITALS: BP 132/76
[2017-06-10] MEDS: PANTOPRAZOLE 40 MG TAB PO SCH (09:49)
[2017-06-10] MEDS: HYOSCYAMINE SULF 0.125 MG TAB PO PRN (09:49)
[2017-06-10] MEDS: PRO-STAT 64 30ML PO SCH (09:50)
[2017-06-10] MEDS: ONDANSETRON HCL 4 MG/2 ML VIAL IV PRN ×3 (11:53→23:05)
[2017-06-10] MEDS: HYDROcodone-ACET 10/325MG TAB PO PRN ×3 (11:53→23:06)
[2017-06-10 13:00] VITALS: BP 99/71
[2017-06-10 17:12] VITALS: BP 106/66
[2017-06-10 22:00] VITALS: BP 112/59
[2017-06-11] MEDS: D5W/SOD CHL 0.45%/KCL 20MEQ 1,000 ML IV SCH ×2 (01:05→08:22)
[2017-06-11 05:00] VITALS: BP 122/63
[2017-06-11] MEDS: CHOLESTYRAMINE 4 GM POWDER PO SCH ×2 (06:00→11:52)
[2017-06-11] MEDS: HYDROcodone-ACET 10/325MG TAB PO PRN ×2 (08:18→14:04)
[2017-06-11] MEDS: ONDANSETRON HCL 4 MG/2 ML VIAL IV PRN ×2 (08:18→14:04)
[2017-06-11 09:00] VITALS: BP 129/81
[2017-06-11] MEDS: PANTOPRAZOLE 40 MG TAB PO SCH (09:35)
[2017-06-11] MEDS ORDERED: ONDA4INJ IV (11:48)
[2017-06-11] MEDS ORDERED: HYOS0.1220 PO (11:48)
[2017-06-11 12:28] VITALS: BP 102/58
[2017-06-11 13:00] VITALS: BP 102/58
== END 2017-06-11 19:06 | DRG 372 ==
LOC: ER 23:01 → OVERFLOW 23:02 → EAST 05-20 14:16
PROVIDERS: ADMIT Internal Medicine; ATTEND Internal Medicine
PROC: 0DBE8ZX Excision of Large Intestine, Via Natural or Artificial Opening Endoscopic, Diagnostic (ICD-10-PCS; principal; 2017-06-05 11:09)
PROC: 0DBF8ZX Excision of Right Large Intestine, Via Natural or Artificial Opening Endoscopic, Diagnostic (ICD-10-PCS; 2017-06-08)
PROC: 0DBN8ZX Excision of Sigmoid Colon, Via Natural or Artificial Opening Endoscopic, Diagnostic (ICD-10-PCS; 2017-06-08)
DX: A04.72 Enterocolitis due to Clostridium difficile, not specified as recurrent (principal); N39.0 Urinary tract infection, site not specified; K63.3 Ulcer of intestine; K42.9 Umbilical hernia without obstruction or gangrene; E86.0 Dehydration; H40.9 Unspecified glaucoma; I10 Essential (primary) hypertension; F15.90 Other stimulant use, unspecified, uncomplicated; K57.30 Diverticulosis of large intestine without perforation or abscess without bleeding; K64.8 Other hemorrhoids; K58.9 Irritable bowel syndrome, unspecified; Z82.49 Family history of ischemic heart disease and other diseases of the circulatory system; Z83.3 Family history of diabetes mellitus; Z87.11 Personal history of peptic ulcer disease; Z90.49 Acquired absence of other specified parts of digestive tract; Z90.710 Acquired absence of both cervix and uterus; Z91.040 Latex allergy status; Z87.891 Personal history of nicotine dependence
CPT/HCPCS: 36415; 45380; 71045; 74176; 74177; 80048; 80053; 81001; 82270; 83690; 84484; 85025; 85610; 85730; 86850; 86900; 86901; 87081; 87177; 87493; 93005; 96374; 96375; J1956; J2250; J2405; J2704; J3490

== ENCOUNTER 2018-07-17 11:01 | Inpatient (IN) | payer OTHER ==
[~2018-07-17] VITALS: Ht 157.5 cm; Wt 76.8 kg
[~2018-07-17 11:01] MED LIST: ACET650S12 PO; AMLO5TAB13 PO; DIPH2.5T73 PO; HYOS0.1220 PO; ONDA4INJ IV; TIMO0.2521 EACHEYE
[2018-07-17] MEDS ORDERED: ONDANSETRON HCL 4 MG/2 ML VIAL IV ONE (11:30)
[2018-07-17 13:42] LABS: Basophils # (auto) 0 uL; Basophils % (auto) 0.3 % (0.0-2.0); Eosinophils # (auto) 0.1 uL; Hematocrit 42.2 % (36.0-46.0); Lymphocytes # (auto) 1.5 uL; Lymphocytes % (auto) 17.7 % (10.0-50.0); Mean Corpuscular Hemoglobin 30.5 pg (28.0-32.0); Mean Corpuscular Hgb Conc. 33.2 g/dL (32.0-36.0); Monocytes # (auto) 0.6 uL; Monocytes % (auto) 6.9 % (0.0-12.0); Neutrophils # (auto) 6.4 uL; Neutrophils % (auto) 74.1 % (37.0-80.0); Platelet Count (auto) 224 10^3/uL (140-450); Red Blood Cells 4.58 10^6/uL (4.0-5.20); Red Cell Distribution Width 13.4 % (11.8-14.3); White Blood Cell 8.6 10^3/uL (4.4-10.8)
[2018-07-17 13:54] LABS: Partial Thromboplastin Time 26.5 sec (23.78-33.04); Prothrombin Time 10.7 sec (9.27-12.13)
[2018-07-17 14:27] LABS: Albumin 3.3 g/dL (3.4-5.0); Anion Gap 9 (5-15); Blood Urea Nitrogen 20 mg/dL (7-18); Calcium 8.4 mg/dL (8.5-10.1); Carbon Dioxide 25 mmol/L (21-32); Chloride 107 mmol/L (98-107); Glucose 94 mg/dL (74-106); Magnesium 2.3 mg/dL (1.6-2.6); Potassium 3.6 mmol/L (3.5-5.1); Sodium 141 mmol/L (136-145)
[2018-07-17 14:31] LABS: Alanine Aminotransferase 23 U/L (13-56); Alkaline Phosphatase 91 U/L (45-117); Aspartate Aminotransferase 22 U/L (15-37); BUN/Creatinine Ratio 24.7; Bilirubin, Total 0.4 mg/dL (0.2-1.0); GFR African American 92 mL/min; GFR Non-African American 76 mL/min; Total Protein 7.1 g/dL (6.4-8.2)
[2018-07-17] MEDS ORDERED: NITROGLYCERIN 0.4 MG SL TAB SL PRN (14:45)
[2018-07-17 15:44] VITALS: BP 141/70
--- NOTE | 2018-07-17 15:44 | NUR ---
Telemetry admit from ER SANTO KRAUS admitted to Telemetry unit no SBAR receive from SANITATION TRUCK DRIVER Mary. Patient oriented to Alva Bryant RN primary RN, unit, room, bed, and unit policies regarding patient care and visiting hours. Patient now on continuous telemetry monitoring, tele box # 2 and telemetry reading on arrival to unit is Sinus Rhythm 70. Patient weighed by bedscale and encouraged to call if they need something. All questions and concerns addressed, patient verbalized understanding. Guard at bedside. Will continue to monitor.
[2018-07-17 17:49] VITALS: BP 141/70
--- NOTE | 2018-07-17 19:16 | NUR ---
CLOSING SHIFT NOTE ENDORSED CARE TO FLOUR MIXER LIZBETH MCCLURE. PATIENT HAS NO S/S OF DISTRESS/SOB OR PAIN AT THIS TIME.
--- NOTE | 2018-07-17 19:35 | NUR ---
Opening Shift Note Assumed care of patient, awake and alert. No S/S of distress/SOB or pain. Guard at bedside. Bed locked in lowest position, side rails upx2, call light within reach. Instructed on POC and to call for assist PRN, will continue to monitor for changes Q1hr and PRN.
[2018-07-18] VITALS (7 sets, daily range): BP systolic 110–147; BP diastolic 53–64
--- NOTE | 2018-07-18 01:32 | NUR ---
DR. GAO AT BEDSIDE. EXPLAINED TO PT REGARDING STRESS TEST IN THE AM.
--- NOTE | 2018-07-18 05:38 | NUR ---
IV insertion IV access obtained, via clean sterile technique by inserting 20 gauge catheter at LEFT WRIST after 1 attempt(s). IV secured properly. No trauma to site. Patient tolerated well.
--- NOTE | 2018-07-18 07:15 | NUR ---
Opening Shift Note Received report from Sydnee NIEVES. Assumed care of patient, asleep. No S/S of distress/SOB or pain. Noted road crossing guard at bedside. Patient is for stress test today, emphasized NPO. Instructed on POC and to call for assist PRN, will continue to monitor for changes Q1hr and PRN.
--- NOTE | 2018-07-18 08:15 | NUR ---
CALLED [facility], SPOKE WITH NORMA TO FF UP PATIENT'S STRESS TEST FOR TODAY.
[2018-07-18] MEDS ORDERED: ADENOSINE 63 MG in GIVE UN-DILUTED 0 ML IV STA (08:26)
--- NOTE | 2018-07-18 08:50 | NUR ---
PATIENT ASSISTED TO MN FOR STRESS TEST BY WHEELCHAIR.
--- NOTE | 2018-07-18 10:00 | NUR ---
PATIENT IS BACK TO ROOM BY WHEELCHAIR. STRESS TEST DONE.
--- NOTE | 2018-07-18 10:00 | NUR ---
WOUND CARE NOTE: PATIENT NOTED TO HAVE MULTIPLE SCABBED WOUNDS UPON ADMIT. WOUND PHOTOS TAKEN AT THAT TIME BY BEDSIDE NURSE FOR REFERENCE, WOUND CONSULT ORDERED. [facility] OF CHEST PAIN. CURRENT ALEXANDRA SCORE IS 20. PATIENT IS ABLE TO SELF TURN/REPOSITION SELF. PATIENT HAS MULTIPLE SCABBED OVER ABRASIONS TO THE ABDOMEN, BUTTOCKS, BLE. IT APPEARS THAT THE PATIENT MAY PICK AT SKIN AND SCRATCH OPEN WOUNDS. CURRENTLY, ALL WOUNDS ARE SCABBED CLOSED. LEFT ALL OPEN TO AIR. NO NEED FOR WOUND DRESSSINGS NEEDED. NO OTHER SKIN INTEGRITY ISSUES NOTED. RECOMMEND: MONITOR WOUNDS Q SHIFT, LEAVE OPEN TO AIR. WOUND CARE TEAM SHOULD BE NOTIFIED IF ANY WOUNDS OPEN AND REQUIRE DRESSINGS. SKIN/WOUND CARE PLAN IMPLEMENTED.
[2018-07-18] MEDS: ASPirin 81 mg TAB PO SCH (10:07)
[2018-07-18] MEDS: ENOXAPARIN SOD 30 MG/0.3 ML SYRINGE SC SCH (10:08)
[2018-07-18] MEDS: METOPROLOL TARTRATE 25 MG TAB PO SCH (10:08)
[2018-07-18] MEDS: LISINOPRIL 5 MG TAB PO SCH (10:08)
--- NOTE | 2018-07-18 12:25 | NUR ---
Dr. Xavier at bedside.
[2018-07-18] MEDS ORDERED: LORATADINE 10 MG TAB PO ONE (12:45)
--- NOTE | 2018-07-18 13:00 | NUR ---
ENCOURAGED PATIENT TO AMBULATE. PATIENT WALKED AT HALLWAY ACCOMPANIED BY STEEPING PRESS TENDER. PATIENT TOLERATED WELL, NO S/SX OF CHEST PAIN NOTED.
[2018-07-18] MEDS: predniSONE 20 MG TAB PO SCH (21:32)
--- NOTE | 2018-07-18 23:05 | NUR ---
Paged Dr. Xavier because patient c/o of diarrhea and requesting meds. Awaiting call back.
[2018-07-19 05:05] VITALS: BP 131/58
--- NOTE | 2018-07-19 07:15 | NUR ---
Opening Shift Note Received report from Sydnee NIEVES. Assumed care of patient, asleep. No S/S of distress/SOB or pain. Noted guardian ad litem at bedside. Awaiting stress test result. Instructed on POC and to call for assist PRN, will continue to monitor for changes Q1hr and PRN.
[2018-07-19 08:00] VITALS: BP 102/59
[2018-07-19 08:03] VITALS: BP 102/59
--- NOTE | 2018-07-19 08:50 | NUR ---
COLLECTED STOOL SAMPLE AND ORDERED CDIFF AND STOOL CULTURE PROTOCOL. PATIENT IS COMPLAINING OF DIARRHEA. STOOL SAMPLE SENT TO LAB. CDIFF FORM FILLED OUT AND SENT TO LAB.
[2018-07-19] MEDS: ENOXAPARIN SOD 30 MG/0.3 ML SYRINGE SC SCH (09:03)
[2018-07-19] MEDS: LORATADINE 10 MG TAB PO SCH (09:04)
[2018-07-19] MEDS: HYDROcodone-ACET 10/325MG TAB PO PRN (09:04)
[2018-07-19] MEDS: ASPirin 81 mg TAB PO SCH (09:05)
[2018-07-19] MEDS: METOPROLOL TARTRATE 25 MG TAB PO SCH (09:05)
[2018-07-19] MEDS: LISINOPRIL 5 MG TAB PO SCH (09:05)
[2018-07-19] MEDS: predniSONE 20 MG TAB PO SCH ×2 (09:14→21:22)
[2018-07-19] MEDS ORDERED: LOPE2CAP PO (10:52)
[2018-07-19] MEDS ORDERED: MESA0.37 PO (10:52)
--- NOTE | 2018-07-19 11:45 | NUR ---
DR. Xavier at bedside. Informed sent stool sample to test for CDIFF due to patient's diarrhea came back again.
[2018-07-19 12:04] VITALS: BP 115/68
--- NOTE | 2018-07-19 12:06 | NUR ---
PATIENT IS REQUESTING TO HAVE SOME OF HER POM GIVEN TO HER: TIMOLOL 0.25% 1 DROP EACH EYE TID, AND MESALAMINE 800MG PO BID. RECEIVED VERBAL ORDER FROM DR. FLORES THAT IT'S OK TO GIVE THE SAID MEDS.
[2018-07-19] MEDS: TIMOLOL MALEATE 0.25 % OPTH SOL 5ML EACHEYE SCH ×2 (14:09→21:34)
[2018-07-19 16:56] VITALS: BP 136/73
--- NOTE | 2018-07-19 19:44 | NUR ---
Opening Shift Note Assumed care of patient, awake and alert. No S/S of distress/SOB or pain. Instructed on POC and to call for assist PRN, will continue to monitor for changes Q1hr and PRN.
[2018-07-19] MEDS: MESALAMINE 400mg Delayed Release Cap PO SCH (21:21)
[2018-07-19 21:32] VITALS: BP 118/72
--- NOTE | 2018-07-19 22:00 | NUR ---
Seen by Adrienne Pimentel and talked to the patient ,said stress test is normal.
[2018-07-20] VITALS (7 sets, daily range): BP systolic 103–145; BP diastolic 52–71
[2018-07-20] MEDS: TIMOLOL MALEATE 0.25 % OPTH SOL 5ML EACHEYE SCH ×3 (05:29→21:27)
--- NOTE | 2018-07-20 07:07 | NUR ---
Report given to Sheela Jackson to assume care, patient is resting no distress.
--- NOTE | 2018-07-20 07:15 | NUR ---
Opening Shift Note Received report from Ely NIEVES. Assumed care of patient, awake and alert. No S/S of distress/SOB or pain. Noted supervisory lifeguard at bedside. Instructed on POC and to call for assist PRN, will continue to monitor for changes Q1hr and PRN.
[2018-07-20] MEDS: MESALAMINE 400mg Delayed Release Cap PO SCH ×2 (09:57→21:25)
[2018-07-20] MEDS: predniSONE 20 MG TAB PO SCH ×2 (09:58→21:26)
[2018-07-20] MEDS: HYDROcodone-ACET 10/325MG TAB PO PRN (09:58)
[2018-07-20] MEDS: METOPROLOL TARTRATE 25 MG TAB PO SCH (09:59)
[2018-07-20] MEDS: LORATADINE 10 MG TAB PO SCH (09:59)
[2018-07-20] MEDS: LISINOPRIL 5 MG TAB PO SCH (09:59)
[2018-07-20] MEDS: ENOXAPARIN SOD 30 MG/0.3 ML SYRINGE SC SCH (10:00)
[2018-07-20] MEDS: ASPirin 81 mg TAB PO SCH (10:00)
--- NOTE | 2018-07-20 11:51 | NUR ---
NUTRITION CONSULT/ASSESSMENT NOTES Please refer to link notes of nutrition screen form filed under the intervention section of the plan of care for further details. Est. Needs: 1550 kcal to 1950 kcal (20-25 kcal/kgBW), 62 gms to 78 gms pro (0.8-1.0 gms/kgBW). Will continue to monitor pertinent labs and reassess nutrient need prn Thank you for this consult. Addendum: 07/20/18 at [address] Amended: Links added.
--- NOTE | 2018-07-20 15:05 | NUR ---
Dr. Xavier at bedside.
[2018-07-21 04:42] VITALS: BP 123/69
[2018-07-21] MEDS: TIMOLOL MALEATE 0.25 % OPTH SOL 5ML EACHEYE SCH ×3 (05:32→21:56)
--- NOTE | 2018-07-21 07:30 | NUR ---
Report given to Sheela Pratt to assume care, patient is resting no distress.
[2018-07-21 09:00] VITALS: BP 134/74
--- NOTE | 2018-07-21 10:08 | NUR ---
Dr. Xavier came over. said patient for possible discharge tomorrow, Monday. Female security at bedside.
[2018-07-21] MEDS: MESALAMINE 400mg Delayed Release Cap PO SCH ×2 (10:50→21:55)
[2018-07-21] MEDS: ENOXAPARIN SOD 30 MG/0.3 ML SYRINGE SC SCH (10:50)
[2018-07-21] MEDS: predniSONE 20 MG TAB PO SCH ×2 (10:51→21:57)
[2018-07-21] MEDS: LISINOPRIL 5 MG TAB PO SCH (10:51)
[2018-07-21] MEDS: LORATADINE 10 MG TAB PO SCH (10:51)
[2018-07-21] MEDS: ASPirin 81 mg TAB PO SCH (10:51)
[2018-07-21] MEDS: METOPROLOL TARTRATE 25 MG TAB PO SCH (10:52)
[2018-07-21 12:52] VITALS: BP 126/57
--- NOTE | 2018-07-21 15:48 | NUR ---
Patient complained of heart burn. Will call Dr. Xavier.
--- NOTE | 2018-07-21 16:00 | NUR ---
Called Dr. Xavier exchange. Vp Product Marketing to relay the message to MD that patient requested medication for heart burn.
--- NOTE | 2018-07-21 16:05 | NUR ---
Dr. Xavier called back. made aware patient complained of heart burn. Dr. Xavier ordered Omeprazole 40 mg daily.
--- NOTE | 2018-07-21 16:20 | NUR ---
Called Pharmacy if Omeprazole 40 mg is available. Pharmacist said Omeprazole is for dysphagia only, not available, Protonix PO is available.
[2018-07-21] MEDS ORDERED: PANTOPRAZOLE 40 MG TAB PO ONE (16:30)
[2018-07-21 17:02] VITALS: BP 124/66
[2018-07-21] MEDS: HYDROcodone-ACET 10/325MG TAB PO PRN (21:59)
[2018-07-21 22:00] VITALS: BP 116/65
[2018-07-22 05:00] VITALS: BP 127/71
[2018-07-22] MEDS: TIMOLOL MALEATE 0.25 % OPTH SOL 5ML EACHEYE SCH ×2 (05:58→14:02)
--- NOTE | 2018-07-22 08:15 | NUR ---
Patient sitting in bed, eating breakfast. Female security at bedside.
[2018-07-22 09:00] VITALS: BP 142/69
[2018-07-22] MEDS ORDERED: PANTOPRAZOLE 40 MG TAB PO SCH (10:00)
[2018-07-22] MEDS: ASPirin 81 mg TAB PO SCH (10:17)
[2018-07-22] MEDS: ENOXAPARIN SOD 30 MG/0.3 ML SYRINGE SC SCH (10:17)
[2018-07-22] MEDS: METOPROLOL TARTRATE 25 MG TAB PO SCH (10:18)
[2018-07-22] MEDS: LISINOPRIL 5 MG TAB PO SCH (10:18)
[2018-07-22] MEDS: LORATADINE 10 MG TAB PO SCH (10:19)
[2018-07-22] MEDS: predniSONE 20 MG TAB PO SCH (10:19)
[2018-07-22] MEDS: MESALAMINE 400mg Delayed Release Cap PO SCH (10:19)
[2018-07-22 12:47] VITALS: BP 119/65
--- NOTE | 2018-07-22 15:10 | NUR ---
Photos taken of the wounds, rashes, scabs on the left and right buttocks, right and left lower extremities. Wound care forms placed on the Wound Care tray. Camera returned to the [facility].
--- NOTE | 2018-07-22 15:25 | NUR ---
Discharge instructions given as ordered. Patient going back to long term. All questions and concerns addressed. Patient verbalized understanding. Medication reconciliation form completed and copy given to female school traffic guard. IV removed with catheter intact, pressure dressing applied. Telemetry unit returned to J[facility]ON. Patient is ambulatory, steady gait noted, patient walking on the hallway with the female school traffic guard to go to the vehicle going back to long term. No distress noted at time of departure.
--- NOTE | 2018-07-22 15:30 | NUR ---
MRSA Swab (both nares) done. Will send the specimen to the Laboratory.
== END 2018-07-22 16:41 | DRG 303 ==
LOC: EDBD 11:01 → ER 11:01 → TELE-EAST 15:49
PROVIDERS: ADMIT Internal Medicine; ATTEND Internal Medicine
DX: I25.110 Atherosclerotic heart disease of native coronary artery with unstable angina pectoris (principal); E11.649 Type 2 diabetes mellitus with hypoglycemia without coma; H40.9 Unspecified glaucoma; K76.9 Liver disease, unspecified; I10 Essential (primary) hypertension; R19.7 Diarrhea, unspecified; Z79.899 Other long term (current) drug therapy; Z90.49 Acquired absence of other specified parts of digestive tract; Z90.710 Acquired absence of both cervix and uterus; Z87.11 Personal history of peptic ulcer disease; Z82.49 Family history of ischemic heart disease and other diseases of the circulatory system; Z83.3 Family history of diabetes mellitus
CPT/HCPCS: 36415; 71045; 78452; 80053; 83735; 83880; 84484; 85025; 85610; 85730; 87045; 87081; 87493; 87899; 93005; 93017; G0378; J0153; J2405

== ENCOUNTER 2018-07-23 14:12 | Emergency (ER) | payer OTHER ==
[~2018-07-23] VITALS: Ht 157.5 cm; Wt 63.5 kg
[~2018-07-23 14:12] MED LIST changes: -ACET650S12 PO; -AMLO5TAB13 PO; -DIPH2.5T73 PO; +LOPE2CAP PO; +MESA0.37 PO
[2018-07-23 15:01] LABS: Basophils # (auto) 0.1 uL; Basophils % (auto) 1.1 % (0.0-2.0); Eosinophils # (auto) 0.1 uL; Eosinophils % (auto) 1.1 % (0.0-7.0); Hematocrit 46.6 % (36.0-46.0); Hemoglobin 15.7 g/dL (12.2-16.2); Lymphocytes # (auto) 2.9 uL; Lymphocytes % (auto) 29.4 % (10.0-50.0); Mean Corpuscular Hemoglobin 31.6 pg (28.0-32.0); Mean Corpuscular Hgb Conc. 33.8 g/dL (32.0-36.0); Mean Corpuscular Volume 93.6 fL (80.0-100.0); Monocytes # (auto) 0.9 uL; Neutrophils # (auto) 5.9 uL; Neutrophils % (auto) 59.4 % (37.0-80.0); Nucleated Red Blood Cells % 0.4 %; Platelet Count (auto) 289 10^3/uL (140-450); Red Blood Cells 4.98 10^6/uL (4.0-5.20); Red Cell Distribution Width 13.6 % (11.8-14.3); White Blood Cell 9.9 10^3/uL (4.4-10.8)
[2018-07-23 15:25] LABS: Albumin 3.5 g/dL (3.4-5.0); Anion Gap 6 (5-15); Blood Urea Nitrogen 20 mg/dL (7-18); Calcium 8.4 mg/dL (8.5-10.1); Carbon Dioxide 28 mmol/L (21-32); Chloride 106 mmol/L (98-107); Glucose 87 mg/dL (74-106); Magnesium 2.5 mg/dL (1.6-2.6); Potassium 3.7 mmol/L (3.5-5.1); Sodium 140 mmol/L (136-145)
[2018-07-23 15:31] LABS: Alanine Aminotransferase 26 U/L (13-56); Alkaline Phosphatase 121 U/L (45-117); Aspartate Aminotransferase 20 U/L (15-37); BUN/Creatinine Ratio 19.8; Bilirubin, Total 0.4 mg/dL (0.2-1.0); GFR African American 71 mL/min; GFR Non-African American 59 mL/min; Total Protein 7.8 g/dL (6.4-8.2)
[2018-07-23] MEDS ORDERED: SODIUM CHLORIDE 0.9% 1,000 ML IV ONE (15:40)
[2018-07-23 16:07] VITALS: BP 122/78
== END 2018-07-23 17:02 | disposition home or self-care (01) ==
LOC: EDBD 14:12 → ER 14:12 → EEVIPCON 14:12 → ER 17:02
DX: E86.0 Dehydration (principal); R10.31 Right lower quadrant pain; I25.10 Atherosclerotic heart disease of native coronary artery without angina pectoris; E11.9 Type 2 diabetes mellitus without complications; E78.5 Hyperlipidemia, unspecified; I10 Essential (primary) hypertension; Z90.89 Acquired absence of other organs; Z90.49 Acquired absence of other specified parts of digestive tract; Z90.710 Acquired absence of both cervix and uterus; Z79.899 Other long term (current) drug therapy; Z91.040 Latex allergy status
CPT/HCPCS: 36415; 74176; 80053; 83735; 84484; 85025; 93005; 96360; 99284; J7030

== ENCOUNTER → 2019-01-04 | Day surgery (SDC) | payer OTHER ==
[~2019-01-04] VITALS: Ht 157.5 cm; Wt 77.6 kg
[~2019-01-04] MED LIST changes: +FLUMAZENIL 0.1 MG/ML INJ 10ML MDV IV ONE; +LIDOCAINE VISCOUS 2% 15ML UD ONE; +NALOXONE HCL 0.4 MG/ML VIAL ONE; +SODIUM CHLORIDE LOCK 10 ML ONE; +diphenhdrAMINE HCL 50 MG/1 ML VL ONE
[2019-01-04 08:24] LABS: Basophils # (auto) 0 uL; Basophils % (auto) 0.6 % (0.0-2.0); Eosinophils # (auto) 0.1 uL; Hematocrit 42.8 % (36.0-46.0); Hemoglobin 14.7 g/dL (12.2-16.2); Lymphocytes # (auto) 1.6 uL; Lymphocytes % (auto) 23.9 % (10.0-50.0); Mean Corpuscular Hemoglobin 32.3 pg (28.0-32.0); Mean Corpuscular Hgb Conc. 34.2 g/dL (32.0-36.0); Mean Corpuscular Volume 94.2 fL (80.0-100.0); Monocytes # (auto) 0.6 uL; Monocytes % (auto) 9.7 % (0.0-12.0); Neutrophils # (auto) 4.2 uL; Neutrophils % (auto) 63.8 % (37.0-80.0); Platelet Count (auto) 223 10^3/uL (140-450); Red Blood Cells 4.55 10^6/uL (4.0-5.20); Red Cell Distribution Width 13.7 % (11.8-14.3); White Blood Cell 6.6 10^3/uL (4.4-10.8)
[2019-01-04 08:34] LABS: INR 0.97 (0.9-1.15); Partial Thromboplastin Time 26.8 sec (23.64-32.05)
[2019-01-04] MEDS: MIDAZOLAM HCL 5 MG/ML-1ML VIAL ONE ×2 (08:38→09:41)
[2019-01-04] MEDS: fentaNYL CITRATE 100 MCG/2 ML VL ONE ×2 (08:38→09:41)
[2019-01-04 09:19] VITALS: BP 108/66
== END | disposition home or self-care (01) ==
LOC: GI 06:20
PROVIDERS: ATTEND Internal Medicine Gastroenterology
DX: K29.50 Unspecified chronic gastritis without bleeding (principal); K59.1 Functional diarrhea; I10 Essential (primary) hypertension; J18.9 Pneumonia, unspecified organism; H40.9 Unspecified glaucoma; Z90.49 Acquired absence of other specified parts of digestive tract; Z79.899 Other long term (current) drug therapy; Z91.040 Latex allergy status; Z90.710 Acquired absence of both cervix and uterus; Z87.891 Personal history of nicotine dependence; Z86.19 Personal history of other infectious and parasitic diseases
CPT/HCPCS: 36415; 43239; 85025; 85610; 85730; 88305; 88342; J1200; J2250; J3010; J7030

== ENCOUNTER 2020-08-03 11:08 | Inpatient (IN) | payer BC, OTHER ==
[~2020-08-03] VITALS: Ht 157.5 cm; Wt 76.3 kg
[~2020-08-03 11:08] MED LIST changes: -FLUMAZENIL 0.1 MG/ML INJ 10ML MDV IV ONE; -LIDOCAINE VISCOUS 2% 15ML UD ONE; -NALOXONE HCL 0.4 MG/ML VIAL ONE; -SODIUM CHLORIDE LOCK 10 ML ONE; -diphenhdrAMINE HCL 50 MG/1 ML VL ONE
[2020-08-03] MEDS ORDERED: SODIUM CHLORIDE 0.9% 1,000 ML IV ONE (11:30)
[2020-08-03] MEDS ORDERED: metroNIDAZOLE 500MG/100ML 100 ML IV ONE (11:30)
[2020-08-03 12:04] LABS: Basophils # (auto) 0 10 ^3/uL (0-0.2); Basophils % (auto) 0.6 % (0.0-2.0); Eosinophils # (auto) 0.1 10 ^3/uL (0-0.8); Eosinophils % (auto) 1.2 % (0.0-7.0); Hematocrit 44.5 % (36.0-46.0); Hemoglobin 15.3 g/dL (12.2-16.2); Lymphocytes # (auto) 2.2 10 ^3/uL (0.4-5.4); Lymphocytes % (auto) 27.5 % (10.0-50.0); Mean Corpuscular Hemoglobin 33.3 pg (28.0-32.0); Mean Corpuscular Hgb Conc. 34.5 g/dL (32.0-36.0); Mean Corpuscular Volume 96.5 fL (80.0-100.0); Monocytes # (auto) 0.7 10 ^3/uL (0-1.3); Monocytes % (auto) 8.8 % (0.0-12.0); Neutrophils % (auto) 61.9 % (37.0-80.0); Nucleated Red Blood Cells % 0.1 %; Platelet Count (auto) 288 10^3/uL (140-450); Red Blood Cells 4.61 10^6/uL (4.0-5.20); Red Cell Distribution Width 12.9 % (11.8-14.3)
[2020-08-03 12:16] LABS: Albumin 3.7 g/dL (3.4-5.0); Anion Gap 8 (5-15); Blood Urea Nitrogen 20 mg/dL (7-18); Calcium 8.8 mg/dL (8.5-10.1); Carbon Dioxide 20 mmol/L (21-32); Chloride 110 mmol/L (98-107); Glucose 98 mg/dL (74-106); Potassium 4.1 mmol/L (3.5-5.1); Sodium 138 mmol/L (136-145)
[2020-08-03 12:22] LABS: Alanine Aminotransferase 20 U/L (13-56); Alkaline Phosphatase 116 U/L (45-117); Aspartate Aminotransferase 20 U/L (15-37); BUN/Creatinine Ratio 21.5; Bilirubin, Total 0.4 mg/dL (0.2-1.0); GFR African American 78 mL/min; GFR Non-African American 64 mL/min; Total Protein 8.1 g/dL (6.4-8.2)
[2020-08-03] MEDS: SODIUM CHLORIDE 0.9% 1,000 ML IV SCH ×2 (13:45→22:21)
[2020-08-03] MEDS ORDERED: MORPHINE SULF INJ 2 MG/ML SYRINGE 1ML IV PRN ×2 (13:45)
[2020-08-03] MEDS ORDERED: NITROGLYCERIN 0.4 MG SL TAB SL PRN (13:45)
[2020-08-03] MEDS ORDERED: ONDANSETRON HCL 4 MG/2 ML VIAL IV PRN ×2 (13:45)
[2020-08-03] MEDS ORDERED: ACETAMINOPHEN 500 MG TAB PO PRN (13:45)
[2020-08-03] MEDS ORDERED: HYDROcodone-ACET 5/325MG TAB PO PRN (13:45)
[2020-08-03] MEDS: metroNIDAZOLE 500MG/100ML 100 ML IV SCH ×2 (13:58→22:30)
[2020-08-03] MEDS: TIMOLOL MALEATE 0.25 % OPTH SOL 5ML EACHEYE SCH ×2 (14:00→22:30)
[2020-08-03] MEDS: VANCOMYCIN HCL 125MG/5ML ORAL SOL PO SCH ×2 (18:00→21:34)
[2020-08-03 20:00] VITALS: BP 139/81
[2020-08-03 22:00] VITALS: BP 139/81
[2020-08-04] MEDS ORDERED: OMEP20TA PO (01:28)
[2020-08-04] MEDS ORDERED: AMLO-489 PO (01:28)
[2020-08-04] MEDS ORDERED: DICY10CA12 PO (01:28)
[2020-08-04] MEDS ORDERED: METO10TA3 PO (01:28)
[2020-08-04] MEDS ORDERED: LISI20TA28 PO (01:28)
[2020-08-04] MEDS ORDERED: VANC125PO PO (01:28)
[2020-08-04] MEDS ORDERED: GABA100C9 PO (01:28)
[2020-08-04] MEDS ORDERED: FAMO20TA10 PO (01:28)
[2020-08-04] MEDS ORDERED: ATOR10TA PO (01:28)
[2020-08-04] MEDS ORDERED: PNEUMOCOCCAL VACC POLYS 25 MCG/0.5 ML VIAL IM ONE (01:30)
[2020-08-04 05:00] VITALS: BP 121/64
[2020-08-04] MEDS: TIMOLOL MALEATE 0.25 % OPTH SOL 5ML EACHEYE SCH ×2 (05:41→14:31)
[2020-08-04] MEDS: metroNIDAZOLE 500MG/100ML 100 ML IV SCH (05:41)
[2020-08-04] MEDS: VANCOMYCIN HCL 125MG/5ML ORAL SOL PO SCH ×3 (05:41→18:17)
[2020-08-04 07:46] VITALS: BP 145/66
[2020-08-04 08:00] VITALS: BP 145/66
[2020-08-04 10:15] LABS: Basophils # (auto) 0 10 ^3/uL (0-0.2); Basophils % (auto) 0.4 % (0.0-2.0); Eosinophils # (auto) 0.1 10 ^3/uL (0-0.8); Hematocrit 40.7 % (36.0-46.0); Hemoglobin 14.2 g/dL (12.2-16.2); Lymphocytes # (auto) 1.1 10 ^3/uL (0.4-5.4); Lymphocytes % (auto) 21.3 % (10.0-50.0); Mean Corpuscular Hemoglobin 33.9 pg (28.0-32.0); Mean Corpuscular Hgb Conc. 34.9 g/dL (32.0-36.0); Mean Corpuscular Volume 97.2 fL (80.0-100.0); Monocytes # (auto) 0.3 10 ^3/uL (0-1.3); Monocytes % (auto) 6.5 % (0.0-12.0); Neutrophils # (auto) 3.8 10 ^3/uL (1.6-8.6); Neutrophils % (auto) 70.8 % (37.0-80.0); Platelet Count (auto) 244 10^3/uL (140-450); Red Blood Cells 4.18 10^6/uL (4.0-5.20); Red Cell Distribution Width 12.3 % (11.8-14.3); White Blood Cell 5.4 10^3/uL (4.4-10.8)
[2020-08-04 10:29] LABS: Calcium 8.6 mg/dL (8.5-10.1); Potassium 4.1 mmol/L (3.5-5.1)
[2020-08-04 10:32] LABS: BUN/Creatinine Ratio 18.3
[2020-08-04 11:55] VITALS: BP 119/63
[2020-08-04] MEDS ORDERED: metroNIDAZOLE 500 MG TAB PO ONE (14:15)
[2020-08-04 16:00] VITALS: BP 143/67
[2020-08-04 17:14] VITALS: BP 120/76
== END 2020-08-04 18:20 | disposition home or self-care (01) | DRG 373 ==
LOC: ER 11:08 → TELE 13:45 → UNDOADMIN 13:45 → TELE-EAST 16:55 → ER 18:25
PROVIDERS: ADMIT Internal Medicine; ATTEND Internal Medicine
PROC: 3E0234Z Introduction of Serum, Toxoid and Vaccine into Muscle, Percutaneous Approach (ICD-10-PCS; principal; 2020-08-04)
DX: A04.72 Enterocolitis due to Clostridium difficile, not specified as recurrent (principal); I10 Essential (primary) hypertension; Z20.822 Contact with and (suspected) exposure to COVID-19; K21.9 Gastro-esophageal reflux disease without esophagitis; E78.5 Hyperlipidemia, unspecified; I70.8 Atherosclerosis of other arteries; K44.9 Diaphragmatic hernia without obstruction or gangrene; R16.0 Hepatomegaly, not elsewhere classified; K57.30 Diverticulosis of large intestine without perforation or abscess without bleeding; Z90.710 Acquired absence of both cervix and uterus; Z91.040 Latex allergy status; Z23 Encounter for immunization
CPT/HCPCS: 36415; 71045; 74176; 80048; 80053; 83605; 84484; 85025; 87040; 87426; 87493; 93005; 96365; G0378; J3490

== ENCOUNTER 2024-06-25 02:32 | Emergency (ER) | payer BC, MEDICAID ==
[~2024-06-25] VITALS: Ht 157.5 cm; Wt 81.7 kg
[~2024-06-25 02:32] MED LIST changes: +AMLO1TAB22 PO; +ATOR10TA PO; +DICY-89 PO; +FAMO20TA10 PO; +GABA-1308 PO; -HYOS0.1220 PO; +LISI20TA56 PO; -MESA0.37 PO; +METO10TA3 PO; +OMEP20TA PO; -ONDA4INJ IV; +VANC125PO PO
--- NOTE | 2024-06-25 02:48 | ED.PDOC ---
HPI Comments 69-year-old female with PMHx DM, GERD, Balls Palsy brought in by EMS presents with a chief complaint of chest pain x 2 hours with associated SOB, nausea, and heartburn. Patient states that her pain is localized to her left chest wall, radiating to her back and left shoulder, describes as pressure, and rates her pain a 8/10. Patient mentions that the pain began while she was at rest and states that she had heartburn as well. Per EMS, their 12-lead was negative and all vital signs were stable. 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 Time Seen by MD: 02:41 Primary Care Provider: NIKKO Reviewed Notes: Medications, Allergies Allergies: Coded Allergies: Latex (Verified Allergy, Unknown, 05/19/17) Home Meds Reported Medications Atorvastatin Calcium (Lipitor) 10 Mg Tab, 1 TAB PO QPM, #90 TAB 1 Refill 08/04/20 Gabapentin (Gabapentin) 100 Mg Cap, 100 MG PO BID for 30 Days, MG 08/04/20 Metoclopramide Hcl (Metoclopramide Hcl) 10 Mg Tab, 10 MG PO BID for 30 Days, MG 08/04/20 Famotidine (PEPCID TABLET) 20 Mg Tb, 40 MG PO HS, TAB 08/04/20 Omeprazole (Gnp Omeprazole) 20 Mg Tab, 1 TAB PO DAILY, #90 TAB 1 Refill 08/04/20 Amlodipine Besylate (Amlodipine Besylate) 5 Mg Tab, 10 MG PO DAILY for 30 Days, MG 08/04/20 Lisinopril (Lisinopril) 20 Mg Tab, 20 MG PO DAILY for 30 Days, MG 08/04/20 Dicyclomine Hcl (Dicyclomine Hcl) 10 Mg Cap, 10 MG PO TID for 30 Days, MG 08/04/20 Vancomycin Hcl (Vancomycin Po) 125 Mg So, 125 MG PO QID, ML 08/04/20 Loperamide Hcl (Loperamide Hcl) 2 Mg Cap, 2 MG PO BID, MG 07/19/18 Timolol Maleate (Timolol Maleate Ophthalmi) 0.25 % Kaylene, 0.25 % EACHEYE TID 05/20/17 Information Source: Patient, Emergency Med Personnel Mode of Arrival: EMS Severity: Moderate Timing: Hours Duration: Since onset Prehospital treatment: 12 Lead EKG, Agronomy Advisor Location: Chest (L) Radiation: Back, Shoulder (L) Quality: Pressure Onset: At Rest Cardiac Risk Factors: Diabetes PE Risk Factors: None History of: None Associated Signs and Symptoms: SOB, N/V, Heartburn Vital Signs Vital Signs Date Time Temp Pulse Resp B/P (MAP) Pulse Ox O2 Delivery O2 Flow Rate FiO2 06/25/24 09:03 79 19 136/64 06/25/24 08:48 98.0 96 98.0 06/25/24 07:40 Room Air* 0 21 Physical Exam General: Awake, alert and oriented. No acute distress. Skin: Skin in warm, dry and intact. Appropriate color for ethnicity. HEENT: The head is normocephalic and atraumatic. Conjunctivae are clear without exudates or hemorrhage. Sclera is non-icteric. EOM are intact. No signs of nystagmus. Eyelids are normal in appearance without swelling or lesions. Oral mucosa is pink and moist Neck: The neck is supple with normal range of motion. No JVD. Cardiac: Heart rate and rhythm are normal. No murmurs, gallops, or rubs are auscultated. Respiratory: No signs of respiratory distress. Lung sounds are clear in all lobes bilaterally without rales, ronchi, or wheezes. Abdominal: Abdomen is soft, non-tender without distention. Bowel sounds are present and normoactive in all four quadrants. Extremities: Upper and lower extremities are atraumatic in appearance without deformity or edema. Neurological: The patient is awake, alert and oriented to person, place, and time with normal speech. Speech is clear. There is right lower facial weakness noted. No upper facial weakness. No upper or lower extremity weakness. Psychiatric: Appropriate mood and affect. Good judgement and insight. Review of Systems: REVIEW OF SYSTEMS: No fever, no chills, or fatigue HEENT: No sore throat, no earache, no congestion, no neck pain. Cardiac: Positive chest pain. No palpitations. Lungs: Positive shortness of breath, no cough. GI: No nausea, no vomiting, no diarrhea, no constipation, no abdominal pain : No dysuria, frequency, or urgency. No hematuria. Musculoskeletal: No joint pain , no joint swelling, no extremity edema. Skin: No rash, no itching. Neuro: No headache, no dizziness, positive right lower face weakness Past Medical History PAST MEDICAL HISTORY: DM, GERD, HTN Past Medical History (Other): [place] Palsy Surgical History: Appendectomy, Cholecystectomy, Hysterectomy, Tonsillectomy STREET VENDOR History: No Pertinent STREET VENDOR History Family History Family History: Reviewed,noncontributory to illness Social History Smoker: Non-Smoker Alcohol: Denies ETOH Use Drugs: Denies Drug Use Lives In: Home EKG EKG : Pulse Rate (adult): 90 [place]: Normal Cardiac Rhythm: NSR Block: None Hypertrophy: None ST: Normal Was a procedure done? Was a procedure done?: No CP Differential Dx Differential Diagnosis: Other (Differential diagnoses considered include acute ischemic coronary syndrome, aortic dissection, cardiac tamponade, mediastinitis, pulmonary embolus, pneumothorax, tension pneumothorax, esophageal rupture, coronary artery vasospasm, myocarditis, pericarditis, pneumonia, pulmonary edema, esophageal tear, pancreatitis, aortic stenosis, dilated cardiomyopathy, hypertrophic cardiomyopathy, mitral valve prolapse, malignancy, pleuritis, pneumomediastinum, primary pulmonary hypertension, cholecystitis, esophageal spasm, esophagus, gastritis, GERD, peptic ulcer disease, costochondritis, fibromyalgia, rib fracture, herpes zoster, radicular syndromes, thoracic outlet syndrome, somatization.) X-Ray, Labs, Meds, VS Vital Signs Date Time Temp Pulse Resp B/P (MAP) Pulse Ox O2 Delivery O2 Flow Rate FiO2 06/25/24 09:03 79 19 136/64 06/25/24 08:48 98.0 79 14 136/64 (88) 96 98.0 06/25/24 07:40 20 98 Room Air* 0 21 06/25/24 06:57 97.9 96 14 115/58 (77) 96 97.9 06/25/24 06:46 78 14 150/60 06/25/24 06:34 83 20 98 Room Air* 0 21 06/25/24 06:09 83 16 154/64 06/25/24 05:50 98.5 78 16 154/56 (88) 96 98.5 06/25/24 05:30 64 06/25/24 05:24 98.5 83 16 135/98 (110) 93 98.5 06/25/24 04:16 90 06/25/24 03:34 77 06/25/24 02:45 98.3 83 18 159/79 (105) 97 98.3 06/25/24 02:35 90 Lab Test 06/25/24 06:05 06/25/24 04:36 06/25/24 03:22 Range/Units Troponin I High Sensitivity 3 L < 3 L < 3 L </=34 ng/L White Blood Count 10.6 4.4-10.8 10^3/uL Red Blood Count 4.82 4.0-5.20 10^6/uL Hemoglobin 16.1 12.2-16.2 g/dL Hematocrit 46.5 H 36.0-46.0 % Mean Corpuscular Volume 96.3 80.0-100.0 fL Mean Corpuscular Hemoglobin 33.3 H 28.0-32.0 pg Mean Corpuscular Hemoglobin Concent 34.6 32.0-36.0 g/dL Red Cell Distribution Width 13.8 11.8-14.3 % Platelet Count 250 140-450 10^3/uL Mean Platelet Volume 7.2 6.9-10.8 fL Neutrophils (%) (Auto) 62.7 37.0-80.0 % Lymphocytes (%) (Auto) 25.1 10.0-50.0 % Monocytes (%) (Auto) 9.1 0.0-12.0 % Eosinophils (%) (Auto) 2.3 0.0-7.0 % Basophils (%) (Auto) 0.8 0.0-2.0 % Neutrophils # (Auto) 6.7 1.6-8.6 10 ^3/uL Lymphocytes # (Auto) 2.7 0.4-5.4 10 ^3/uL Monocytes # (Auto) 1.0 0-1.3 10 ^3/uL Eosinophils # (Auto) 0.2 0-0.8 10 ^3/uL Basophils # (Auto) 0.1 0-0.2 10 ^3/uL Nucleated Red Blood Cells 0.0 % Sodium Level 136 136-145 mmol/L Potassium Level 4.1 3.5-5.1 mmol/L Chloride Level 105 98-107 mmol/L Carbon Dioxide Level 21 20-31 mmol/L Anion Gap 10 5-15 Blood Urea Nitrogen 22 9-23 mg/dL Creatinine 1.07 H 0.550-1.02 mg/dL Glomerular Filtration Rate Calc 56 >90 mL/min BUN/Creatinine Ratio 20.6 H 10.0-20.0 Serum Glucose 143 H 74-106 mg/dL Calcium Level 9.9 8.7-10.4 mg/dL Total Bilirubin 0.3 0.2-1.0 mg/dL Aspartate Amino Transferase (AST) 18 13-40 U/L Alanine Aminotransferase (ALT) 21 7-40 U/L Alkaline Phosphatase 79 46-116 U/L B-Type Natriuretic Peptide 8.38 0-100 pg/mL Total Protein 7.7 5.7-8.2 g/dL Albumin 4.7 3.2-4.8 g/dL Current Medications Medications (Trade) Dose Ordered Sig/Clarita Route Start Time Stop Time Status Last Admin Aspirin 324 mg ONCE ONCE PO 06/25/24 02:45 06/25/24 02:46 DC 06/25/24 06:08 Morphine Sulfate 2 mg ONCE ONCE IV 06/25/24 02:45 06/25/24 02:46 DC 06/25/24 06:09 Morphine Sulfate 2 mg ONCE ONCE IV 06/25/24 07:00 06/25/24 07:01 DC 06/25/24 09:03 Ondansetron HCl (Zofran) 4 mg ONCE ONCE IV 06/25/24 07:00 06/25/24 07:01 DC 06/25/24 09:05 Time of 1ST Reevaluation: 03:11 Reevaluation 1ST: Unchanged Patient Education/Counseling: Diagnosis, Treatment, Prognosis Family Education/Counseling: No Family Present Departure 1 Departure Time of Disposition: 05:10 Impression: Primary Impression: Chest pain Disposition: 30 STILL A PATIENT Condition: Stable Comments 69-year-old female with a history of hypertension, diabetes, hyperlipidemia presented to the emergency department with chest pain. Initial EKG and troponin negative. Patient continues to endorse chest pain Discussed with Dr. Osuna @ 05:00 with request for admission. He will see patient in the emergency department. Critical Care Note Critical Care Time?: No Stability Stability form required: No Heart Score Heart Score: Heart Score Response (Comments) Value History Highly Suspicious 2 EKG Normal 0 Age >65 2 Risk Factors >3 or Hx ASHD 2 Troponin Normal limit 0 Total 6 I personally scribed for HEATH ALEJO MD ([email or web address]) on 06/25/24 at 02:48. Electronically submitted by Marcel Sampson ([email or web address]). I personally scribed for HEATH ALEJO MD ([email or web address]) on 06/25/24 at 04:16. Electronically submitted by Marcel Sampson [email or web address]). HEATH ALEJO MD Jun 25, 2024 02:48
[2024-06-25 03:32] LABS: Basophils # (auto) 0.1 10 ^3/uL (0-0.2); Basophils % (auto) 0.8 % (0.0-2.0); Eosinophils # (auto) 0.2 10 ^3/uL (0-0.8); Eosinophils % (auto) 2.3 % (0.0-7.0); Hematocrit 46.5 % (36.0-46.0); Hemoglobin 16.1 g/dL (12.2-16.2); Lymphocytes # (auto) 2.7 10 ^3/uL (0.4-5.4); Lymphocytes % (auto) 25.1 % (10.0-50.0); Mean Corpuscular Hemoglobin 33.3 pg (28.0-32.0); Mean Corpuscular Hgb Conc. 34.6 g/dL (32.0-36.0); Mean Corpuscular Volume 96.3 fL (80.0-100.0); Monocytes % (auto) 9.1 % (0.0-12.0); Neutrophils # (auto) 6.7 10 ^3/uL (1.6-8.6); Neutrophils % (auto) 62.7 % (37.0-80.0); Platelet Count (auto) 250 10^3/uL (140-450); Red Blood Cells 4.82 10^6/uL (4.0-5.20); Red Cell Distribution Width 13.8 % (11.8-14.3); White Blood Cell 10.6 10^3/uL (4.4-10.8)
--- NOTE | 2024-06-25 03:40 | ECG ---
[facility] Test Date: 2024-06-25 Test Time: 03:34:36 Pat Name: SANTO KRAUS Department: er Room: Gender: F Gym Supervisor: : 1955 Requested By: HEATH ALEJO Order Number: [id number] Reading MD: Ervin Rubin Measurements Intervals [place] Rate: 77 P: 71 MD: 136 QRS: 41 QRSD: 88 T: 56 QT: 391 QTc: 443 Interpretive Statements Sinus rhythm Electronically Signed On 06-27-2024 20:43:38 PDT by Ervin Rubin Please click the below link to view image of tracing.
[2024-06-25 03:50] LABS: Alanine Aminotransferase 21 U/L (7-40); Albumin 4.7 g/dL (3.2-4.8); Alkaline Phosphatase 79 U/L (46-116); Anion Gap 10 (5-15); Aspartate Aminotransferase 18 U/L (13-40); BUN/Creatinine Ratio 20.6 (10.0-20.0); Bilirubin, Total 0.3 mg/dL (0.2-1.0); Blood Urea Nitrogen 22 mg/dL (9-23); Calcium 9.9 mg/dL (8.7-10.4); Carbon Dioxide 21 mmol/L (20-31); Chloride 105 mmol/L (98-107); Potassium 4.1 mmol/L (3.5-5.1); Sodium 136 mmol/L (136-145); Total Protein 7.7 g/dL (5.7-8.2)
[2024-06-25 03:51] LABS: Glucose 143 mg/dL (74-106)
--- NOTE | 2024-06-25 05:08 | DVH ---
CHEST RADIOGRAPH Indication: cp Technique: Single frontal view of the chest was obtained COMPARISON: CHEST PORTABLE on DOS: 08/03/20 FINDINGS: Lines and Tubes: None Lungs: Clear Pleura: No effusion. No pneumothorax. Cardiomediastinal contours: Unremarkable Bones: Unremarkable IMPRESSION: No acute disease.
--- NOTE | 2024-06-25 05:09 | DVH ---
EXAM: CT HEAD WITHOUT CONTRAST INDICATION: Right lower face weakness TECHNIQUE: CT of the head without intravenous contrast. Radiation Dose : 1. Head: CT Dose: CTDI volume is 50.81 mGy. Dose-length product is 814.67 mGy*cm The dose indicators for CT are the volume Computed Tomography (CT) Dose Index (CTDIvol) and the Dose Length Product (DLP), and are measured in units of mGy and mGy-cm, respectively. These indicators are not patient dose, but values generated from the CT scanner acquisition factors. The report includes radiation exposure data for exposures received during this examination. COMPARISON: None FINDINGS: There is no evidence of acute intracranial hemorrhage, extra-axial collection, mass effect, midline s hift, herniation or hydrocephalus. The ventricles, sulci and cisterns are age appropriate. The ness-white differentiation is intact. Patchy periventricular and subcortical white matter hypoattenuation is nonspecific but may be related to small vessel ischemic disease. The visualized paranasal sinuses and mastoid air cells are clear. The surrounding soft tissues and osseous structures are unremarkable. IMPRESSION: No acute intracranial abnormality. Patchy periventricular and subcortical white matter hypoattenuation is nonspecific but may be related to small vessel ischemic disease. MRI can be obtained to further evaluate if clinically indicated. Radiation optimization: All CT scans at this facility use at least one of these dose optimization joel hniques: automated exposure control mA and/or kV adjustment per patient size (includes targeted exam s where dose is matched to clinical indication) or iterative reconstruction.
--- NOTE | 2024-06-25 05:31 | ECG ---
[facility] Test Date: 2024-06-25 Test Time: 05:30:27 Pat Name: SANTO KRAUS Department: ED Room: Gender: F Batting Machine Operator Insulation: KEVON : 1955 Requested By: HEATH ALEJO Order Number: [id number] Reading MD: Ervin Rubin Measurements Intervals [place] Rate: 64 P: 67 MD: 136 QRS: 40 QRSD: 88 T: 46 QT: 417 QTc: 431 Interpretive Statements Sinus rhythm Electronically Signed On 06-27-2024 20:43:53 PDT by Ervin Rubin Please click the below link to view image of tracing.
--- NOTE | 2024-06-25 05:40 | ECG ---
[facility] Test Date: 2024-06-25 Test Time: 02:35:23 Pat Name: SANTO KRAUS Department: ED Room: Gender: F Hadoop Analyst: KEVON : 1955 Requested By: HEATH ALEJO Order Number: [id number] Reading MD: Ervin Rubin Measurements Intervals [place] Rate: 90 P: 69 IN: 141 QRS: 26 QRSD: 85 T: 44 QT: 364 QTc: 446 Interpretive Statements Sinus rhythm Low voltage, precordial leads Electronically Signed On 06-27-2024 20:43:28 PDT by Ervin Rubin Please click the below link to view image of tracing.
[2024-06-25] MEDS: ASPirin 81 mg TAB PO ONE (06:08)
[2024-06-25] MEDS: MORPHINE SULFATE INJ 2 MG/ml SYRG IV ONE ×2 (06:09→09:03)
[2024-06-25 06:34] VITALS: PULSE 83; RESP 20; O2SAT 98
[2024-06-25 07:40] VITALS: RESP 20; O2SAT 98
[2024-06-25 08:48] VITALS: TEMP 98; O2SAT 96
[2024-06-25] MEDS ORDERED: MECLIZINE HCL 25 MG TAB PO ONE (09:00)
[2024-06-25] MEDS: MECLIZINE HCL 25 MG TAB ONE (09:02)
[2024-06-25 09:03] VITALS: BP 136/64; PULSE 79; RESP 19
[2024-06-25] MEDS: NITROGLYCERIN 0.4 MG SL TAB SL ONE (09:03)
[2024-06-25] MEDS: hydrALAZINE HCL 20 MG/ML VL IV PRN (09:03)
[2024-06-25] MEDS: ONDANSETRON HCL 4 MG/2 ML VIAL IV ONE (09:05)
--- NOTE | 2024-06-25 19:03 | DVHINCON2 ---
DATE OF CONSULTATION: 06/25/2024 CHIEF COMPLAINT: Coming in with sharp chest pain and left shoulder blade pain and acid reflux symptoms. HISTORY OF PRESENT ILLNESS: This is a 69-year-old female with a significant past medical history for essential hypertension, diabetes mellitus type 2, hyperlipidemia, CKD stage 3, acid reflux and history of right sided Lopez's palsy, who presents to Emergency Room with chief complaint of chest pain on the left side. The patient says all day yesterday, she has been dealing with significant acid reflux symptoms. She has been taking all her acid reflux medications, beside that had continued burning sensation in her esophagus up to her throat and by evening time the patient started having some chest pain, which she describes on the left side radiating to her left shoulder blade region. The patient describes the pain as being sharp in nature. She has had some shortness of breath with it as well as feeling a little bit nauseous, but the patient says she is always nauseous usually in the morning and evenings and take nausea medications typically twice a day. The patient says that the symptoms of her chest pain is worse with deep inspirations or lying down. The patient denies any recent history of cough or phlegm or any fevers. She felt maybe a little bit of chills last. She does not typically endorse any exertional chest pain symptoms. She does get out of breath when exerting herself more than she typically would on an average day. The patient otherwise is a very sedentary lifestyle. She does live in the home that has a staircase going up to the second floor. She says when she does exert herself, she does not endorse any chest pain symptoms. She did have some chest pains about 6 years ago, was seen here at this facility and had a nuclear stress test, which was negative at that time. The patient otherwise feels improved. She did receive some nitroglycerin without improvement in her pain. The patient did receive morphine and her pains drastically improved. The patient also endorses having some dizziness symptoms on standing typically feeling lightheaded. No room spinning sensation and feeling some numbness on her right side of her face and right facial droop which she says is chronic for her and typically gets worse when she gets sick. These symptoms can exacerbate both her right eye and right side of her mouth become weaker and she has endorsed it in the past. On standing, the patient says there is feeling lightheaded sensation, but not room spinning. The patient also reports having history of chronic right facial weakness due to an episode of Lopez's palsy 2 years ago, which has got worse last night and typically gets worse when she has an acute infection. PAST MEDICAL HISTORY: Essential hypertension, diabetes mellitus type 2, hyperlipidemia, CKD stage III, acid reflux, Lopez's palsy. PAST SURGICAL HISTORY: Had a cholecystectomy in 2019. SOCIAL HISTORY: No tobacco, no alcohol, no illicit drugs. MEDICATIONS: At home per medical reconciliation. MEDICATION ALLERGIES: No known drug allergies. REVIEW OF SYSTEMS: A 10-point review of systems was covered with the patient and was negative with exception to what was present in history of present illness. PHYSICAL EXAMINATION: VITAL SIGNS: Temperature 98.3, pulse rate of 90, respiratory rate of 18, blood pressure 159/79, pulse ox about 97% on room air. GENERAL: Seems to be alert, oriented x 4, not in acute distress, female, sitting up in a chair. HEENT: Normocephalic, atraumatic. Extraocular muscles intact. Pupils are equally round, react to light and accommodation. Mucous membranes were dry. CARDIOVASCULAR: S1, S2 positive, regular rate and rhythm. No rubs, gallops or murmurs. LUNGS: Clear to auscultation bilaterally. No wheezing, rhonchi or rales. ABDOMEN: Seems to be soft, nontender, nondistended, positive bowel sounds. No guarding or rebound. EXTREMITIES: Lower extremity edema, clubbing or cyanosis. NEUROLOGIC: No focal deficits. Cranial nerves testing 2-12 overall seems to be intact with exception to what was notable for right facial weakness. LABORATORY WORKUP: Shows a white count 10.6, H and H of 16.1/46.5, platelet count 250,000. Sodium 136, potassium 4.1, chloride 105, carbon dioxide of 21, anion gap of 10, BUN of 22, creatinine 1.07, calcium 9.9, AST of 18, ALT of 21, alkaline phosphatase 79. Troponins of less than 3. The next set also is 3, then the third one is also 3. ProBNP was 8.38. IMAGING: Head CT was completed, shows no acute intracranial abnormality. Patchy periventricular and subcortical white matter hypoattenuation is nonspecific, maybe related to small vessel ischemic disease. Chest x-ray shows no acute disease process. EKG was normal sinus rhythm, ventricular rate of 96, no ST elevations or depressions, otherwise. DIAGNOSES: Atypical chest pain, acid reflux, and dehydration. PLAN: The patient was kept in the Emergency Room. Full evaluation was completed with the patient. The patient is presenting with sharp chest pain on the left side. It is worse with lying flat or taking deep inspirations with associated also acid reflux symptoms. On presentation, the patient has multiple troponins drawn, which were negative and the patient was ruled out for acute coronary syndrome. EKG showed normal sinus rhythm without any ischemic changes. The patient's prior medical records were also reviewed and the patient did have a stress test about 6 years ago, which was completely normal. The patient has a very well controlled diabetes with A1c of 6.3, and takes Farxiga 10 mg once a day. The patient otherwise has no exertional component to her chest pain symptoms and again seems to be exacerbated by position and deep inspirations which is noncardiac related. The patient did receive nitro, which also did not improve her symptoms. The patient after receiving morphine IV fluid hydration, the patient felt overall improved. The patient did have a sitting blood pressures of 115/58 with a standing blood pressures of 99/46, causing her to have a slight lightheadedness. The patient received 1 liter of fluids, which improved her symptoms. The patient did have still mild symptoms of dizziness after her fluids. The patient was informed to hydrate well at home and to stand still for a few seconds after standing to allow the body equilibrate before taking any steps. The patient was also informed to use her cane, which she has at home for extra stability. The patient finally already has acid reflux medications at home, which she will resume. The patient will be arranged for a PCP followup within the next 5-7 days. A Cardiology referral for further outpatient cardiac risk stratification within the next 3 days. The patient to monitor blood pressures at home and keep a log of it to present to her primary care provider. The patient to resume all home medications. The patient to return to the Emergency Room in case of any recurrences of chest pain, development of shortness of breath, fevers, chills, palpitations or any other concerns or questions. Ry Cárdenas MD LM/LE TID: [id number] RECEIPT: [id number] MTDD
== END 2024-06-25 13:08 | disposition home or self-care (01) ==
LOC: ER 02:32 → EDUNIT# 02:32 → EDBD 02:32 → ER 13:08
DX: R07.89 Other chest pain (principal); R11.0 Nausea; E78.5 Hyperlipidemia, unspecified; R29.810 Facial weakness; I10 Essential (primary) hypertension; Z90.49 Acquired absence of other specified parts of digestive tract; Z90.710 Acquired absence of both cervix and uterus; Z79.899 Other long term (current) drug therapy; Z91.040 Latex allergy status
CPT/HCPCS: 36415; 70450; 71045; 80053; 83880; 84484; 85025; 93005; 96374; 96375; 96376; 99285; J2270; J2405; J8597